=== PATIENT | male | born 1955 | race Caucasian/White ===

== ENCOUNTER 2025-01-15 09:58 | Outpatient (CLI) | payer MEDICARE, OTHER, SELFPAY ==
--- NOTE | 2025-01-15 11:02 | ECG_ITS ---
Test Date: 2025-01-15 11:16:01 Measurements Intervals [place] Rate: 56 P: 53 AK: 172 QRS: -5 QRSD: 107 T: 26 QT: 398 QTc: 387 Interpretive Statements SINUS BRADYCARDIA NONSPECIFIC T-WAVE ABNORMALITIES WARNING: DATA QUALITY MAY AFFECT INTERPRETATION No previous ECG available for comparison Electronically Signed On 01-15-2025 11:32:51 [facility] [employer] by Micha Sunshine M.D.
[2025-01-15 12:16] LABS: Hematocrit 45.6 % (42.0-52.0); Hemoglobin 14.8 g/dL (14.0-18.0); Mean Corpuscular HGB Conc 32.5 g/dl (32-36); Mean Corpuscular Hemoglobin 29.8 pg (26-34); Mean Corpuscular Volume 91.8 fl (80-100); Platelet Count Result 230 k/mm3 (150-375); Red Blood Count 4.97 M/mm3 (4.6-6.20); White Blood Count 9.4 K/mm3 (4.5-10.0)
[2025-01-15 12:29] LABS: Anion Gap 8 mmol/L (4-12); Blood Urea Nitrogen 26 mg/dL (9-20); Calcium 10.3 mg/dL (8.4-10.2); Carbon Dioxide 26 mmol/L (22-30); Chloride 106 mmol/L (98-107); Estimated Glomerular Filt Rate 56; Glucose 86 mg/dL (65-110); Potassium 4.5 mmol/L (3.4-5.0); Sodium 140 mmol/L (137-145)
[2025-01-15 12:30] LABS: Add Urine Microscopic? YES; Appearance Urine Clear (Clear); Glucose Urine UA Negative (Negative); INR 1.0; Leukocyte Esterase Ur Trace LEU/UL (Negative); Nitrate Urine Negative (Negative); Non Pathogenic Casts 0-2; Partial Thromboplastin Time 29.4 Seconds (22.3-36.8); Prothrombin Time 13.8 Seconds (11.1-14.7); Specific Grav Ur 1.018 (1.001-1.035)
--- OUTSIDE RECORDS SUMMARY | 2025-01-15 18:23 | XMS_ITS | Encounter Summary ---
Author Organization [facility] Address [address] [place] [address] Care Team Providers Care Certified Pharmacy Technician Name Role Phone Neftaly Jamison MD Primary Care Provider [phone] Encounter Details Date Type Department Care Team (Late st Contact Info) Description 09/23/2021 Lab Requisition [facility] DermPath Lab [address] [facility] [place] [phone] Sadi Irizarry MD [address] [facility] [facility] [place] [address] Social History Tobacco Use Types Packs/Day Years Used Date Smoking Tobacco: Former Alcohol Use Standard Drinks/Week Comments No 0 (1 standard drink = 0.6 oz pur e alcohol) Sex and Gender Information Value Date Recorded Sex Assigned at Not on file 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 Gender Identity Not on file Sexual Orientation Not on file documented as of this encounter Plan of Treatment Not on file documented as of this encounter Procedures Procedure Name Priority Date/Time Associated Diagnosis Comments DERMATOPATHOLOGY Routine 09/21/2021 12:0 0 AM CDT documented in this encounter Results * DERMATOPATHOLOGY (09/21/2021 12:00 AM CDT) Case Report Dermatopathology Report Case: [id number] Authorizing Provider: Sadi Irizarry MD Collected: 09/21/2021 12:00 AM Ordering Location: [facility] DermPath Lab Received: 09/23/2021 07:05 AM Pathologist: Perla Vargas MD Specimen: Skin, left upper FA 12:51 PM CDT DERMATOPATHOLOGY LABORATORY Final Diagnosis Specimen A. SKIN, left upper FA: DERMAL SCAR RESIDUAL SQUAMOUS CELL CARCINOMA NOT IDENTIFIED (L90.5) TATTOO (L81.8) 2 12:51 PM CDT DERMATOPATHOLOGY LABORATORY at 1251 CDT Clinical History SCCA in situ. 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 Check margins. 12:51 PM CDT DERMATOPATHOLOGY LABORATORY Gross Description Specimen A: Received is one formalin filled container labeled with the patient's name and designated left upper FA. The specimen consists of a non-oriented ellipse of skin measuring 84l10a7th. The epidermal surface is unremarkable. The margin is inked green. The 12 o'clock and 6 o'clock tips are submitted in cassette 1. The remainder of the ellipse is serially sectioned and submitted in cassette 2-3. Jar 0. 12:51 PM CDT DERMATOPATHOLOGY LABORATORY Microscopic Description Specimen A. SKIN, left upper FA: There are fibroblasts and collagen bundles oriented parallel to the skin surface. There are elongated blood vessels, some of which are oriented perpendicular to the skin surface. No residual squamous cell carcinoma is identified. There is granular pigment in macrophages and free within the dermis. 12:51 PM CDT DERMATOPATHOLOGY LABORATORY Disclaimer An external and internal positive and negative controls are appropriate for the histochemical, immunohistochemical and immunofluorescence stain(s) in this case (if any), except where stated explicitly. The performance characteristics of the stain(s) cited in this report were developed and its performance characteristic determined by the Dermatopathology Laboratory at [facility], directed by Dr. Briana Luis. These tests need not be, and therefore are not, approved by the [place] Food and Drug Administration. The tests are used for clinical purposes. Billing Codes Specimen Charges Stain Charges 22705 1 2 12:51 PM CDT DERMATOPATHOLOGY LABORATORY Embedded Images 12:51 PM CDT DERMATOPATHOLOGY LABORATORY Pathology/Cytolog y TISSUE SPECIMEN FROM SKIN / Unknown 09/21/2021 09/23/2021 7:05 AM CDT us Sadi Irizarry MD LAB - PATHOLOGY/CYTOLOGY ORDER JOSSUE Final Result DERMATOPATHOLOGY LABORATORY [facility] - Department of Dermatology [address], [address] [phone] documented in this encounter Visit Diagnoses Not on filedocumented in this encounter Care Teams Certified Pharmacy Technician Relationship Specialty Start Date End Date Neftaly Jamison MD [address] [place] [address] PCP - General 07/20/14 documented as of this encounter
--- OUTSIDE RECORDS SUMMARY | 2025-01-15 18:23 | XMS_ITS | Encounter Summary ---
Author Organization [facility] Address [address] [place] [address] Care Team Providers Care Cattle Producers Name Role Phone Neftaly Jamison MD Primary Care Provider [phone] Encounter Details Date Type Department Care Team (Late st Contact Info) Description 01/22/2023 Lab Requisition [facility] - DermPath Lab [address] [facility] [place] [phone] Sadi Irizarry MD [address] [facility] [place] [address] Social History Tobacco Use Types Packs/Day Years Used Date Smoking Tobacco: Former Alcohol Use Standard Drinks/Week Comments No 0 (1 standard drink = 0.6 oz pur e alcohol) Sex and Gender Information Value Date Recorded Sex Assigned at Not on file Legal Sex Male 6:12 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 Gender Identity Not on file Sexual Orientation Not on file documented as of this encounter Plan of Treatment Not on file documented as of this encounter Procedures Procedure Name Priority Date/Time Associated Diagnosis Comments DERMATOPATHOLOGY Routine 01/22/2023 12:0 0 AM COMMERCIAL CARPET INSTALLER documented in this encounter Results * DERMATOPATHOLOGY (01/22/2023 12:00 AM COMMERCIAL CARPET INSTALLER) Case Report Dermatopathology Report Case: [id number] Authorizing Provider: Sadi Irizarry MD Collected: 01/22/2023 12:00 AM Ordering Location: [facility] DermPath Lab Received: 01/22/2023 02:41 PM Pathologist: Marisela Cardona MD Specimen: Skin, right forearm 1:45 PM [facility] DERMATOPATHOLOGY LABORATORY Final Diagnosis Specimen A. SKIN, right forearm: BENIGN VERRUCOUS KERATOSIS (L82.1) (see microscopic description) 1:45 PM [facility] DERMATOPATHOLOGY LABORATORY at 1345 COMMERCIAL CARPET INSTALLER Clinical History SCCA vs Prurigo Path# [id number] 1:45 PM [facility] DERMATOPATHOLOGY LABORATORY Gross Description Specimen A: Received is one formalin filled container labeled with the patient's name and designated right forearm. The specimen consists of a shave biopsy measuring 10x9x2 mm. Jar 0. 1:45 PM [facility] DERMATOPATHOLOGY LABORATORY Microscopic Description Specimen A. SKIN, right forearm: Sections show hyperkeratosis, papillomatosis, hypergranulosis, and acanthosis. These histological findings can be seen in a verruca vulgaris or a seborrheic keratosis. Prurigo nodularis was also considered. 1:45 PM [facility] DERMATOPATHOLOGY LABORATORY Disclaimer An external and internal positive and negative controls are appropriate for the histochemical, immunohistochemical and immunofluorescence stain(s) in this case (if any), except where stated explicitly. The performance characteristics of the stain(s) cited in this report were developed and its performance characteristic determined by the Dermatopathology Laboratory at [facility], directed by Dr. Briana Luis. These tests need not be, and therefore are not, approved by the [place] Food and Drug Administration. The tests are used for clinical purposes. Billing Codes Specimen Charges Stain Charges 92056 1 1:45 PM [facility] DERMATOPATHOLOGY LABORATORY Embedded Images 1:45 PM [facility] DERMATOPATHOLOGY LABORATORY Pathology/Cytolog y TISSUE SPECIMEN FROM SKIN / Unknown 01/22/2023 01/22/2023 2:41 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 us Sadi Irizarry MD LAB - PATHOLOGY/CYTOLOGY ORDER JOSSUE Final Result DERMATOPATHOLOGY LABORATORY [facility] - Department of Dermatology [address], [address] [phone] documented in this encounter Visit Diagnoses Not on filedocumented in this encounter Care Teams Cattle Producers Relationship Specialty Start Date End Date Neft[place] [address] PCP - General 07/20/14 documented as of this encounter
--- OUTSIDE RECORDS SUMMARY | 2025-01-15 18:23 | XMS_ITS | Encounter Summary ---
Author Organization [facility] Address [address] [place] [address] Care Team Providers Care Circulation Worker Name Role Phone Doron Gonzalez DO Primary Care Provider [phone] Neftaly Hawthorne MD Primary Care Provider [phone] Encounter Details Date Type Department Care Team (Late st Contact Info) Description 07/24/2017 Community Orders [facility] EPICCARE LINK Bashir Jaramillo MD [facility] [address] [address] Social History Tobacco Use Types Packs/Day Years Used Date Smoking Tobacco: Never Assessed Sex and Gender Information Value Date Recorded Sex Assigned at Not on file Legal Sex Male 6:07 PM CDT Gender Identity Not on file Sexual Orientation Not on file documented as of this encounter Plan of Treatment Not on file documented as of this encounter Visit Diagnoses Not on filedocumented in this encounter Care Teams Circulation Worker Relationship Specialty Start Date End Date Doron Gonzalez DO PCP - General 08/02/16 06/05/19 Neftaly Hawthorne MD [address] [place] [address] PCP - General INTERNAL MEDICINE 06/06/19 documented as of this encounter
--- OUTSIDE RECORDS SUMMARY | 2025-01-15 18:23 | XMS_ITS | Encounter Summary ---
Author Organization [facility] Address [address] [place] [address] Care Team Providers Care Base Wad Operator Adjuster Name Role Phone Neftaly Jamison MD Primary Care Provider [phone] Encounter Details Date Type Department Care Team (Late st Contact Info) Description 07/05/2020 Lab Requisition [facility] DermPath Lab [address] [facility] 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 Gender Identity Not on file Sexual Orientation Not on file documented as of this encounter Plan of Treatment Not on file documented as of this encounter Procedures Procedure Name Priority Date/Time Associated Diagnosis Comments DERMATOPATHOLOGY Routine 07/01/2020 3:33 AM CDT documented in this encounter Results * DERMATOPATHOLOGY (07/01/2020 3:33 AM CDT) Case Report Dermatopathology Report Case: [id number] Authorizing Provider: Sadi Irizarry MD Collected: 07/01/2020 03:33 AM Ordering Location: [facility] DermPath Lab Received: 07/05/2020 05:53 AM Pathologist: Jacinta Luis MD Specimens: A) - Skin, right lateral neck B) - Skin, left clavicle 4:07 PM T DERMATOPATHOLOGY LABORATORY Final Diagnosis Specimen A. SKIN, right lateral neck: HYPERPLASTIC (HYPERTROPHIC) ACTINIC KERATOSIS, ACANTHOLYTIC WITH FOLLICULAR EXTENSION (L57.0) Specimen B. SKIN, left clavicle: BASAL CELL CARCINOMA, NODULAR TYPE (C44.519) 4:07 PM CDT DERMATOPATHOLOGY LABORATORY at 1607 CDT Clinical History A: AK vs BCCA vs SCC. Path#[id number] B: AK vs BCCA vs SCCA. Path#[id number] 4:07 PM CDT DERMATOPATHOLOGY LABORATORY Gross Description Specimen A: Received is one formalin filled container labeled with the patient's name and designated right lateral neck. The specimen consists of a shave biopsy measuring 8x6x1 mm. Jar 0. Specimen B: Received is one formalin filled container labeled with the patient's name and designated left clavicle. The specimen consists of a shave biopsy measuring 7x6x1 mm. Jar 0. 4:07 PM CDT DERMATOPATHOLOGY LABORATORY Microscopic Description Specimen A. SKIN, right lateral neck: There is hyperkeratosis alternating with parakeratosis. There is epidermal hyperplasia with disorderly maturation of keratinocytes with nuclear pleomorphism confined to the lower half of the epidermis. Specimen B. SKIN, left clavicle: Within the dermis there are aggregates of basaloid cells with a high nuclear to cytoplasmic ratio and peripheral palisading. 4:07 PM CDT DERMATOPATHOLOGY LABORATORY Disclaimer An external and internal positive and negative controls are appropriate for the histochemical, immunohistochemical and immunofluorescence stain(s) in this case (if any), except where stated explicitly. The performance characteristics of the stain(s) cited in this report were developed and its performance characteristic determined by the Dermatopathology Laboratory at [facility], directed by Dr. Briana Luis. These tests need not be, and therefore are not, approved by the [place] Food and Drug Administration. The tests are used for clinical purposes. Billing Codes Specimen Charges Stain Charges 02860 37162 1 1 04/27/202 1 4:07 PM CDT DERMATOPATHOLOGY LABORATORY Embedded Images 1 4:07 PM CDT DERMATOPATHOLOGY LABORATORY Pathology/Cytology TISSUE SPECIMEN FROM SKIN / Unknown 07/01/2020 3:33 AM CDT 07/05/2020 5:53 AM CDT Miscellaneous samples (specimen) TISSUE SPECIMEN FROM SKIN / Unknown 07/01/2020 3:33 AM CDT 07/05/2020 5:53 AM CDT us Sadi Irizarry MD LAB - PATHOLOGY/CYTOLOGY ORDER JOSSUE Final Result DERMATOPATHOLOGY LABORATORY [facility] - Department of Dermatology [facility] Medicine [address] [place] [address], [address] [phone] documented in this encounter Visit Diagnoses Not on filedocumented in this encounter Care Teams Base Wad Operator Adjuster Relationship Specialty Start Date End Date Neftaly Jam[place] [address] PCP - General 07/20/14 documented as of this encounter
--- OUTSIDE RECORDS SUMMARY | 2025-01-15 18:23 | XMS_ITS | Encounter Summary ---
Author Organization [facility] Address [address] [place] [address] Care Team Providers Care Process Controls Technician Name Role Phone Neftaly Jamison MD Primary Care Provider [phone] Encounter Details Date Type Department Care Team (Late st Contact Info) Description 09/29/2022 Lab Requisition [facility] - DermPath Lab [address] [facility] [place] [phone] Sadi Irizarry MD [address] [facility] [place] [address] Social History Tobacco Use Types Packs/Day Years Used Date Smoking Tobacco: Former Alcohol Use Standard Drinks/Week Comments No 0 (1 standard drink = 0.6 oz pur e alcohol) Sex and Gender Information Value Date Recorded Sex Assigned at Not on file 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 Gender Identity Not on file Sexual Orientation Not on file documented as of this encounter Plan of Treatment Not on file documented as of this encounter Procedures Procedure Name Priority Date/Time Associated Diagnosis Comments DERMATOPATHOLOGY Routine 09/28/2022 12:0 0 AM CDT documented in this encounter Results * DERMATOPATHOLOGY (09/28/2022 12:00 AM CDT) Case Report Dermatopathology Report Case: [id number] Authorizing Provider: Sadi Irizarry MD Collected: 09/28/2022 12:00 AM Ordering Location: [facility] DermPath Lab Received: 09/29/2022 11:54 AM Pathologist: Azul Mata MD Specimen: Skin, right lat. neck 1:42 PM T DERMATOPATHOLOGY LABORATORY Final Diagnosis Specimen A. SKIN, right lat. 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 Path# [id number]. Check Margins. 1:42 PM CDT DERMATOPATHOLOGY LABORATORY Gross Description Specimen A: Received is one formalin filled container labeled with the patient's name and designated right lat. neck.The specimen consists of an ellipse measuring 63z46v4 mm and is oriented with the suture/notch at the 12 o'clock position labeled on the requisition. The 12 to 6 o'clock margin is inked green. The 6 o'clock to 12 o'clock margin is inked black. The 12 o'clock tip is submitted in cassette 1. The 6 o'clock tip is submitted in cassette 2. The remainder of the ellipse is serially sectioned and submitted in cassettes 3-4. Jar 0. 1:42 PM CDT DERMATOPATHOLOGY LABORATORY Microscopic Description Specimen A. SKIN, right lat. neck: The epidermis shows parakeratosis, full thickness disorderly maturation of keratinocytes, mitoses at different levels, and dyskeratotic cells. This lesion is not present at the margin of the specimen. There are fibroblasts and collagen bundles oriented parallel to the skin surface with elongated blood vessels, some of which are oriented perpendicular to the skin surface. There is incidental adjacent focal parakeratosis. The lower half of the epidermis shows disorderly maturation of keratinocytes with nuclear pleomorphism. This lesion is present at the green, 12 to 6 o'clock, margin of the specimen. 1:42 PM CDT DERMATOPATHOLOGY LABORATORY Disclaimer An external and internal positive and negative controls are appropriate for the histochemical, immunohistochemical and immunofluorescence stain(s) in this case (if any), except where stated explicitly. The performance characteristics of the stain(s) cited in this report were developed and its performance characteristic determined by the Dermatopathology Laboratory at [facility], directed by Dr. Briana Luis. These tests need not be, and therefore are not, approved by the [place] Food and Drug Administration. The tests are used for clinical purposes. Billing Codes Specimen Charges Stain Charges 38925 1 3 1:42 PM CDT DERMATOPATHOLOGY LABORATORY Embedded Images 3 1:42 PM CDT DERMATOPATHOLOGY LABORATORY Pathology/Cytolog y TISSUE SPECIMEN FROM SKIN / Unknown 09/28/2022 09/29/2022 11:54 AM CDT Sadi Irizarry MD LAB - PATHOLOGY/CYTOLOGY ORDER JOSSUE Final Result DERMATOPATHOLOGY LABORATORY [facility] - Department of Dermatology [facility] Medicine [address] [place] [address], [address] [phone] documented in this encounter Visit Diagnoses Not on filedocumented in this encounter Care Teams Process Controls Technician Relationship Specialty Start Date End [place] [address] PCP - General 07/20/14 documented as of this encounter
--- OUTSIDE RECORDS SUMMARY | 2025-01-15 18:23 | XMS_ITS | Encounter Summary ---
Author Organization [facility] Address [address] [facility] [place] [address] Care Team Providers Care Mica Spreader Name Role Phone Neftaly Jamison MD Primary Care Provider [phone] Encounter Details Date Type Department Care Team (Late st Contact Info) Description 08/08/2019 Lab Requisition [facility] DermPath Lab [address] [facility] [place] [phone] Sadi Irizarry MD [address] [facility] [place] [address] Social History Tobacco Use Types Packs/Day Years Used Date Smoking Tobacco: Former Alcohol Use Standard Drinks/Week Comments No 0 (1 standard drink = 0.6 oz pur e alcohol) Sex and Gender Information Value Date Recorded Sex Assigned at Not on file 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 Gender Identity Not on file Sexual Orientation Not on file documented as of this encounter Plan of Treatment Not on file documented as of this encounter Procedures Procedure Name Priority Date/Time Associated Diagnosis Comments DERMATOPATHOLOGY Routine 08/07/2019 12:0 0 AM CDT documented in this encounter Results * DERMATOPATHOLOGY (08/07/2019 12:00 AM CDT) Case Report Dermatopathology Report Case: [id number] Authorizing Provider: Sadi Irizarry MD Collected: 08/07/2019 12:00 AM Ordering Location: [facility] DermPath Lab Received: 08/08/2019 02:34 PM Pathologist: Perla Vargas MD Specimen: Skin, right upper FH 0 3:00 PM CDT DERMATOPATHOLOGY LABORATORY Final Diagnosis Specimen A. SKIN, right upper FH: ACTINIC KERATOSIS (L57.0) 0 3:00 PM CDT DERMATOPATHOLOGY LABORATORY at 1500 CDT Clinical History SCCA vs AK. Path # [id number]. 0 3:00 PM CDT DERMATOPATHOLOGY LABORATORY Gross Description Specimen A: Received is one formalin filled container labeled with the patient's name and designated right upper FH. The specimen consists of a shave biopsy measuring 3p4b7bi. Jar 0. 0 3:00 PM CDT DERMATOPATHOLOGY LABORATORY Microscopic Description Specimen A. SKIN, right upper FH: There is focal parakeratosis. The lower half of the epidermis shows disorderly maturation of keratinocytes with nuclear pleomorphism. 0 3:00 PM CDT DERMATOPATHOLOGY LABORATORY Disclaimer An external and internal positive and negative controls are appropriate for the histochemical, immunohistochemical and immunofluorescence stain(s) in this case (if any), except where stated explicitly. The performance characteristics of the stain(s) cited in this report were developed and its performance characteristic determined by the Dermatopathology Laboratory at [facility], directed by Dr. Briana Luis. These tests need not be, and therefore are not, approved by the [place] Food and Drug Administration. The tests are used for clinical purposes. Billing Codes Specimen Charges Stain Charges 92965 1 0 3:00 PM CDT DERMATOPATHOLOGY LABORATORY Embedded Images 0 3:00 PM CDT DERMATOPATHOLOGY LABORATORY Pathology/Cytolog y TISSUE SPECIMEN FROM SKIN / Unknown 08/07/2019 08/08/2019 2:34 PM CDT us Sadi Irizarry MD LAB - PATHOLOGY/CYTOLOGY ORDER JOSSUE Final Result DERMATOPATHOLOGY LABORATORY [facility] - Department of Dermatology Asphalt Mixing Machine Operator [place]/[address] [phone] documented in this encounter Visit Diagnoses Not on filedocumented in this encounter Care Teams Mica Spreader Relationship Specialty Start Date End Date Neftaly Jamison MD [address] [place] [address] PCP - General 07/20/14 documented as of this encounter
--- OUTSIDE RECORDS SUMMARY | 2025-01-15 18:23 | XMS_ITS | Clinical Summary ---
Author Organization [facility] [employer] Address [address] [place] [address] Care Team Providers Care Patient Case Manager Name Role Phone Neftaly Jamison MD Primary Care Provider [phone] Source Comments [facility] Affiliates and Associated Physician Practices is amultiple site organization consisting of ambulatory clinics and hospital sitesin [place], [place], [place] and [place]. This disclosure is being madepursuant to the Care Everywhere program and may not contain all information available regarding this patient. Last updated 17.[facility] [employer] Allergies Active Allergy Reactions Criticality Noted Date Comments Codeine Other Low 08/10/2014 AGUILERA Family History Medical History Relation Name Comments Allergy (Severe) Neg Hx CVA Neg Hx Cancer Neg Hx Cancer - Breast Neg Hx Cancer - Skin, Melanoma Neg Hx Cancer - Skin, Non Melanoma Neg Hx Eczema Neg Hx Hemophilia Neg Hx Psoriasis Neg Hx Rashes/Skin Problems Neg Hx Social History Tobacco Use Types Packs/Day Years Used Date Smoking Tobacco: Former Alcohol Use Standard Drinks/Week Comments No 0 (1 standard drink = 0.6 oz pur e alcohol) Sex and Gender Information Value Date Recorded Sex Assigned at Not on file Legal Sex Male 6:12 PM [employer] Gender Identity Not on file Sexual Orientation Not on file Last Filed Vital Signs Vital Sign Reading Time Taken Comments Blood Pressure 118/80 09/08/2014 9:51 AM CDT Pulse 57 09/08/2014 9:51 AM CDT Temperature - - Respiratory Rate - - Oxygen Saturation 97% 09/08/2014 9:51 AM CDT Inhaled Oxygen Concentration - - Weight 106.6 kg (235 lb) 09/08/2014 7:38 AM CDT Height 175.3 cm (5' 9) 09/08/2014 7:38 AM CDT Body Mass Index 34.7 09/08/2014 7:38 AM CDT Plan of Treatment Health Maintenance Due Date Last Done Comments COLOGUARD (AGES 45-75) - COL ON CA SCREENING 1956 COLON MONITORING 1956 COLONOSCOPY - COLON CA SCREENING 1956 CT COLONOGRAPHY - COLON CA SCREENING 1956 Colorectal Cancer Screening 1956 FIT - COLON CA SCREENING 1956 FLEX SIG - COLON CA SCREENING 1956 LIPID TESTING 1956 MEDICARE AWV 12 MONTHS 1956 HEPATITIS C SCREENING 04/02/1974 DTAP/TDAP/TD VACCINES (1 - Tdap) 1975 PNEUMOCOCCAL VACCINE 50+ (1 of 1 - PCV) 2006 ZOSTER VACCINE (1 of 2) 2006 AAA SCREENING 2021 DEPRESSION SCREENING 03/12/2024 COVID-19 VACCINE (1 - 2023-2 5 season) 2024 INFLUENZA VACCINE (#1) 2024 Respiratory Syncytial Virus (RSV) Vaccine Pt: or over 60 yrs (1 - 1-dose 75+ series) 2031 HEPATITIS B VACCINE Aged Out No longe r eligible based on patient's age to complete this topic HIB VACCINE Aged Out No longer eligi ble based on patient's age to complete this topic HPV VACCINE Aged Out No longer eligi ble based on patient's age to complete this topic MENINGOCOCCAL (Group B) VACC INE SHARED DECISION-MAKING Aged Out No longer eligibl e based on patient's age to complete this topic MENINGOCOCCAL GROUPS A/C/Y/W VACCINE Aged Out No longer eligible b ased on patient's age to complete this topic Insurance [facility] MEDICARE Care Teams Patient Case Manager Relationship Specialty Start Date End Date Neftaly Jamison MD [address] [place] [place] [address] PCP - General 07/20/14
--- OUTSIDE RECORDS SUMMARY | 2025-01-15 18:23 | XMS_ITS | Clinical Summary ---
Author Organization [facility] Address [address] [place] [address] Care Team Providers Care Loan Documentation Specialist Name Role Phone Neftaly Hawthorne MD Primary Care Provider [phone] Logan Contreras MD, Ariel Unavailable [phone]- [phone] Antonino FUENTES MD, Sebastián Grant Unavailable [phone] Narciso Hauser MD Unavailable [phone] Allergies Active Allergy Reactions Criticality Noted Date Comments Codeine Headache Low 08/10/2014 Medications FLUoxetine (PROzac) 40 mg capsule 1 Active tamsulosin (FLOMAX) 0.4 mg extended release capsule 1 Active olmesartan (BENICAR) 40 mg tablet Take 1 tablet (40 mg total) by mouth daily Active busPIRone (BUSPAR) 15 mg tablet 2 Active mesalamine (LIALDA) 1.2 gram EC tabletIndications :Ulcerative pancolitis without complication (HCC) TAKE 1 TABLET 4 TIMES DAILY 360 tablet 3 4 Active finasteride (PROSCAR) 5 mg tablet TAKE 1 TABLET DAILY 90 tablet 3 5 Active potassium citrate ER (UROCIT-K) 10 mEq (1,080 mg) CR tablet Take 1 tablet (10 mEq total) by mouth 2 (two) times a day Active omeprazole (PriLOSEC) 20 mg capsuleIndication s:Gastroesophagea l reflux disease without esophagitis TAKE 1 CAPSULE DAILY 90 capsule 3 5 Active rOPINIRole (REQUIP) 3 mg tabletIndications :PLMD (periodic limb movement disorder) TAKE 1 TABLET NIGHTLY 90 tablet 2 5 Active Active Problems Problem Noted Date Diagnosed Date Arthropathy of lumbar facet joint 06/09/2024 Sensorineural hearing loss (SNHL) of both ears 0 03/22/2023 Dysfunction of both eustachian tubes 03/22/2023 Morbid (severe) obesity due to excess calories 1 Left flank pain 07/11/2021 Overview (07/15/2022): Has been ongoing for many years, not related to UC, food intake, BMs or movements. Was having episodic N/V that is like Cyclic Vomitting Syndrome. Improved with Nortriptyline 50mg Assessment & Plan (07/15/2022 6:53 AM CDT): The patient has chronic left flank pain has improved with the use of nortriptyline. He believes that the 50 mg dose is superior to the lower 1. He is not having any undue side effects. He will continue to follow with Urology given his history chronic kidney stones. He is advised to continue to drink plenty of water Assessment & Plan (07/11/2021 1:12 PM CDT): His left flank pain has been going on for many years and is possibly neuropathic. Increasing nortriptyline may help. This should also help with CVS. Some improvement already. - increase nortriptyline to 50mg daily. 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 The patient was informed that he may stop the Eliquis the beginning of August. If he experiences any shortness of breath or tightness in his calf see was informed to call back in to the office or proceed to the emergency room. The patient was informed that if he develops another blood clot that he would be on anticoagulation for the rest of his life. Renal cyst 04/05/2021 PLMD (periodic limb movement disorder) Assessment & Plan (05/13/2024 2:39 PM DENTAL SURGERY DOCTOR): Under control with Requip 3 mg night Assessment & Plan (01/01/2024 11:07 AM CDT): Patient continue with Requip 3 mg p.o. Q bedtime. The patient will call back in if he would like gabapentin ordered after he has his back pain evaluated. Assessment & Plan (12/28/2022 10:17 AM CDT): The PLMS are under control with Requip 3 mg at bedtime. I have sent a refill to his pharmacy and he will follow-up with me in 1 year. Assessment & Plan (12/29/2021 10:35 AM CDT): Due to the increased leg movements throughout the night, I have increased the Requip to 1.5 mg nightly. I have reordered the medication. Assessment & Plan (06/23/2021 11:45 AM CDT): Patient will continue with Requip 1 mg p.o. at bedtime to treat periodic limb movement disorder. Assessment & Plan (05/26/2021 12:49 PM CDT): Patient will continue with Requip 1 mg p.o. at bedtime to treat periodic limb movement disorder. Assessment & Plan (02/22/2021 12:09 PM DENTAL SURGERY DOCTOR): Patient continue to use Requip 1 mg p.o. Q bedtime. Pulmonary embolus 02/18/2021 Assessment & Plan (12/29/2021 10:35 AM CDT): Patient was instructed that if he should start showing signs or symptoms of a PE or sudden shortness of breath, to go to the ED. Assessment & Plan (05/26/2021 12:54 PM CDT): The patient will continue with Eliquis 5 mg b.i.d.. The patient has a venous Doppler bilaterally, CTA and a factor 5 ordered. Patient will obtain before next appointment. Assessment & Plan (02/22/2021 12:09 PM DENTAL SURGERY DOCTOR): Patient continue with his Eliquis prescribed by the primary care physician. I did order a factor 5, protein S and an anti thrombin. High risk medications (not anticoagulants) long- term use 10/06/2019 Assessment & Plan (10/06/2019 3:31 PM CDT): High risk medications: As with all patients taking immunosuppressive biologic therapies or immunomodulators, we provide a balanced discussion on benefits and risks associated with these medications. Regarding potential risks, we employ a strategy of active monitoring for medication related toxicities. Toxicities and risks discussed in monitoring include, but are not limited to the following: infusion reactions including anaphylaxis; bacterial, viral and fungal infections; pancreatitis; heart failure; neurologic reactions; hematologic and solid tumors malignancy including an increased risk of lymphoma and skin cancers; bone marrow toxicity including anemia, lymphopenia and immune suppression; hepatotoxicity and potential renal toxicity. Patients are actively assessed through routine laboratories (Q4 month or more frequently) which I personally review and are encouraged to contact us with any questions regarding new symptom development. In the setting of the COVID-19 pandemic, we are proactively addressing patient concerns through providing clear communication on current expert opinion (and data as becomes available) with regard to SARS-Co-V-2/COVID-19 and IBD as well as IBD Therapy. We regularly update our [email or web address] website and social media feeds to further communicate this information. All of our recommendations are also in line with the CDC as well as professional societies including the international organization for the study of inflammatory bowel disease as well as the Crohn's and Colitis Foundation patient education recommendations. General Recommendations include: 1. COVID-19 is the disease caused by the SARS-CoV-2 virus, but patients with IBD do not appear to be at a higher risk for infection with SARS-CoV-2 or development of COVID-19. 2. Patients with IBD who do not have infection with SARS-CoV-2 should NOT discontinue their IBD therapies and should continue infusion schedules at appropriate infusion centers. 3. Patients with IBD who have known SARS-CoV-2 but have not developed COVID-19 should hold thiopurines, methotrexate, and tofacitinib. Dosing of biological therapies should be delayed for 2 weeks monitoring for symptoms of COVID-19. 4. Patients with IBD who develop COVID-19 should hold thiopurines, methotrexate, tofacitinib, and biological therapies during the viral illness. These may be restarted after complete symptom resolution or, if available, when follow-up viral testing is negative or serologic tests demonstrate the convalescent stage of illness. 5. The severity of the COVID-19 and the severity of the IBD should result in careful risk/benefit assessments regarding treatments for COVID-19 and escalating treatments for IBD. 6. Please submit cases of IBD and confirmed COVID-19 to the SECURE-IBD registry at COVIDIBD.org. https://www.crohnscolitisfoundation.org/coronavirus/admt-abh-hhcihibq-should-kno w https://www.cdc.gov/coronavirus/2019-nCoV/index.html https://www.ioibd.org/nvxdu-hkftzt-au--nre-enhablqk-uycy-bqizpr-ppuqlch-d nd-ul cerative-colitis/ Nausea 10/06/2019 Obstructive sleep apnea 04/02/2019 Assessment & Plan (05/13/2024 2:39 PM DENTAL SURGERY DOCTOR): Due to ongoing symptoms, the patient will continue CPAP at 8 cm water pressure. Denied need for supplies. ALEXUS Krishnamurthy Assessment & Plan (01/01/2024 11:10 AM CDT): Patient continue to wear CPAP at 8 cm water pressure while sleeping. I have sent her over for the patient receiving new CPAP set at 8 cm water pressure. His DME is [employer]. Assessment & Plan (12/28/2022 10:17 AM CDT): The patient continues to benefit from CPAP at 8 cm water pressure due to ongoing symptoms of DIANNA. His DME supplier is [employer]. He will follow-up with me in 1 year. Assessment & Plan (12/29/2021 10:35 AM CDT): Continues CPAP therapy at 8 cm water pressure. Denied need for supplies. DME [employer] Assessment & Plan (06/23/2021 11:44 AM CDT): The patient will continue with CPAP therapy at 8 cm water pressure. Patient denied need for supplies. DME Progression Assessment & Plan (05/26/2021 12:50 PM CDT): The patient will continue with CPAP therapy at 8 cm water pressure. Patient denied need for supplies. DME Progression Assessment & Plan (02/22/2021 12:09 PM DENTAL SURGERY DOCTOR): Patient continues to wear his CPAP at 8 cm water pressure while sleeping. His DME is [employer]. Iron deficiency anemia 01/22/2019 Assessment & Plan (01/31/2019 5:34 PM DENTAL SURGERY DOCTOR): FOB x 3 - to rule out GI source of loss If positive and colonoscopy negative, consider capsule endoscopy UA x 3 - to rule out urinary source of loss If positive, return to urology. DDX concern for renal nutcracker syndrome Low ferritin level 01/17/2019 Left lower quadrant pain 08/22/2018 Assessment & Plan (07/15/2022 6:55 AM CDT): Patient had some mild streaking in his sigmoid on his CT scan from March. There was concern that this could be diverticulitis. Unfortunately he has a history of chronic pain in this region that has not yielded any appreciable findings on previous workups. He is asked to contact us if he experiences a fairly persistent pain and tenderness in this area that lasts a couple days and does not seem similar to his chronic pain or his kidney pain as we can repeat imaging and offer antibiotics. Assessment & Plan (01/31/2019 5:37 PM DENTAL SURGERY DOCTOR): Unlikely to be GI related as he was in remission, bowel habits have not changed, and passage of stool doesn't impact symptoms Consider referral to pain management if workup negative as could be muscular skeletal trigger point as fairly focally tender Assessment & Plan (08/22/2018 8:54 AM CDT): As the patient was noted to have significant diverticulosis he is at risk for diverticulitis. We would like to repeat blood work and get a CT scan today. This should allow was to determine whether the pain is related to a kidney stone, disease activity, or diverticulitis. 1. Blood work today 2. CT scan of abdomen 3. If CT scan is negative, apply heating pad and Levsin. Continue regular hydration Iron deficiency anemia due to chronic blood loss 08/22/2018 Assessment & Plan (08/22/2018 8:54 AM CDT): Patient typically has polycythemia and has typically required phlebotomy monthly for the last 2 years. Recently he has not required phlebotomy for to out of the last 3 months. This is slightly concerning for mild chronic blood loss. 1. Check CBC and fecal occult cards x3 2. Continue follow-up with hematology. 3. If fecal occult cards positive, plan for EGD and colonoscopy Essential hypertension 03/20/2018 Gastroesophageal reflux disease without esophagi tis 01/28/2018 Overview (01/28/2018): Has had recurrent over years. Came back again in fall 2017. Assessment & Plan (06/08/2023 8:15 AM CDT): Chronic GERD, well-controlled with PPI daily. -continue PPI daily -RECOMMENDATIONS given include: anti-reflux maneuvers, Avoid acidic foods like oranges and tomatoes., avoidance of spicy foods, avoid eating 3-4 hours before bed, elevation of the head of the bed, and weight loss Assessment & Plan (07/11/2021 12:45 PM CDT): Controlled with ppi, continue. Assessment & Plan (01/28/2018 9:38 AM DENTAL SURGERY DOCTOR): Trial of PPI. Colon adenoma 01/28/2018 Overview (01/28/2018): 4 mm polyp on colonoscopy in 2018. Likely sporadic. Assessment & Plan (01/28/2018 9:40 AM DENTAL SURGERY DOCTOR): Repeat colonoscopy in 1-2 years. 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 - Inactive (Humphrey Score 0) ulcerative colitis, in remission, in remission since the last examination. - Diverticulosis in the sigmoid colon. - Background biopsies were taken from the right colon, left colon and rectosigmoid colon. Pathology: Colon, ascending, biopsy: Colonic mucosa within normal limits Colon, left, biopsy: Inactive chronic colitis Colon, rectosigmoid, biopsy: Inactive chronic proctocolitis Imaging: CT A/P 08/2018 1. Nonobstructing 2 mm right upper pole renal stone. 2. Diverticulosis without diverticulitis. Assessment & Plan (06/08/2023 8:24 AM CDT): History of ulcerative pancolitis diagnosed in 2002. Has been well maintained on Lialda 4.8 g per day. Last colonoscopy by Dr. Gillis April 2021 with inactive ulcerative pancolitis, pathology unremarkable. -continue Lialda 4.8 g per day -we will order labs - CBC, CMP, CRP, ESR, fecal calprotectin -schedule colonoscopy -The risks (risks of bleeding, infection, perforation requiring surgery, missed polyps/cancer, dental injury, aspiration pneumonia, anesthesia complications such as drug reaction and cardiopulmonary complications including rare chance of ), benefits, and alternatives of the planned procedure were explained to the patient who understands and consents to having procedure done. Assessment & Plan (07/15/2022 6:57 AM CDT): The patient continues to do well on Lialda monotherapy and it remains quite affordable. We would like to continue this for the foreseeable future. We will plan to repeat his colonoscopy in April of 2023. His labs with his primary or urologist that include a CMP are sufficient for monitoring his Lialda. Assessment & Plan (07/11/2021 12:44 PM CDT): He appears to be in clinical, endoscopic, and histologic remission based on his last colonoscopy in 04/2021 and his symptoms. His diarrheas and vomiting have resolved with nortriptyline. His left flank pain has been going on for many years and is possibly neuropathic. Increasing nortriptyline may help although the pt is not interested at this time. He is doing well on Lialda, and will continue this treatment. His next colonoscopy will be in 2024 (asuming he continues to be in remission). - continue Lialda 4.8g daily - continue nortriptyline 50 daily. - one year follow up with one of our SAFETY AND HEALTH MANAGER Assessment & Plan (10/06/2019 3:44 PM CDT): He appears to be in clinical, endoscopic, and histologic remission based on his last colonoscopy and his symptoms. His LLQ pain was possibly due to his diverticular disease, though it appears to be now completely resolved. He is doing well on Lialda, and will continue this treatment. It's unclear what is causing his short bouts of nausea, but since they are very self limited we will plan to continue to monitor his symptoms and he will let us know if they get worse He will contact us with any further symptoms. We have provided him with our direct office number. He is up to date on colonoscopy, next due in 04/2021. We will refer him to our clinical dental surgery doctor for nutritional optimization. Assessment & Plan (02/02/2019 2:26 PM DENTAL SURGERY DOCTOR): While the patient attributes this pain to his UC, he admits that the pain historically has been to be intermittent and not associated with active disease. If anything his UC may have been diagnosed as an incidental finding Plan: Repeat colonoscopy Continue Lialda until proven ineffective Assessment & Plan (08/22/2018 8:51 AM CDT): Patient was noted to be in remission on his recent colonoscopy in September of 2017 and his current symptoms are not suggestive of a flare. We would recommend that he continue his Lialda 1. Continue Lialda 2. Colonoscopy scheduling based on previous discussion with Dr. Gillis unless symptoms change Assessment & Plan (01/28/2018 9:37 AM DENTAL SURGERY DOCTOR): In clinical, endoscopy and histologic remission. conintue angelolda. Needs colonoscopy in summer 2019. Temporary cerebral vascular dysfunction 03/22/19 11 Resolved Problems Problem Noted Date Diagnosed Date Resolved Date RLS (restless legs syndrome) 05/26/2021 05/26/2021 Ulcerative colitis with complication 05/26/2021 07/11/2021 Primary insomnia 02/22/2021 05/26/2021 Ulcerative pancolitis (CMS/HCC) 03/19/2019 07/11/2021 Overview (03/19/2019): Added automatically from request for surgery [id number] Encounters Date Type Department Care Team Description 10/22/2024 10:00 AM CDT Office Visit [facility] [address] [place] [address], [address] [place] [address] Jose E Pacheco MD Acute low back pain with sciatica, sciatica laterality unspecified, unspecified back pain laterality (Primary Dx) from Last 3 Months Immunizations Immunization Administration Dates Next Due Influenza, Quadrivalent, Melissa l Culture-based MDCK, Antibiotic Free, Intramuscular 05/21/2018 Influenza, Quadrivalent, Split, Intramuscular Pneumococcal Conjugate PCV 13 01/15/2017 ZOSTER Recombinant 10/31/2018,06/12/2018 Surgical History Surgery Date Site/Laterality Comments WA LITHOTRIPSY XTRCORP SHOCK WAVE Renal Lithotripsy - (Added by TW Conv) WA APPENDECTOMY ROTATOR CUFF REPAIR KNEE SURGERY Knee Surgery - (Added by TW Conv) LASIK CHOLECYSTECTOMY BRONCHOSCOPY 04/15/2019 drug induced sleep endoscopy SINUS SURGERY CATARACT EXTRACTION SEPTOPLASTY 03/12/1997 - 03/11/1998 COLONOSCOPY Medical History Medical History Date Comments Anemia TIA (transient ischemic attack) Kidney stone Skin cancer UC (ulcerative colitis) 2007 History of colon polyps Pulmonary embolism 02/2021 Allergic rhinitis Anxiety Hypertension GERD (gastroesophageal reflux disease) Colitis HL (hearing loss) Colon polyp Family History Medical History Relation Name Comments Diabetes Brother Diabetes Father Family history of diabetes mellitus (DM) - (Added by TW Conv) Heart disease Father Hypertension Father Family history of hypertension - (Added by TW Conv) Cancer Mother Family history of malignant neoplasm - lung (Added by TW Conv) Lung cancer Mother Cancer Sister Family history of malignant neoplasm - lung (Added by TW Conv) Lung cancer Sister Relation Name Status Comments Brother Father Mother Sister Social History Tobacco Use Types Packs/Day Years Used Date Smoking Tobacco: Former Cigarettes 1991 Smokeless Tobacco: Never Tobacco Cessation:Counseling Given: Not Answered Alcohol Use Standard Drinks/Week Comments Not Currently 0 (1 standard drink = 0.6 oz pur e alcohol) AUDIT-C Answer Date Recorded Q1: How often do you have a drink containing alcohol? Never 07/09/2024 Q2: How many drinks containi ng alcohol do you have on a typical day when you are drinking? Patient does not drink Q3: How often do you have si x or more drinks on one occasion? Never 07/09/2024 Personal Safety Answer Date Recorded Have you ever been in or are you currently in a harmful physical or emotional relationship or is someone making you feel afraid or unsafe? Denies 07/11/2023 Sex and Gender Information Value Date Recorded Sex Assigned at Not on file Legal Sex Male 2:36 AM DENTAL SURGERY DOCTOR Gender Identity Male 09/16/2019 11:58 AM CDT Sexual Orientation Straight 09/16/2019 11 :58 AM CDT Last Filed Vital Signs Vital Sign Reading Time Taken Comments Blood Pressure 143/76 10/22/2024 9:52 AM CDT Pulse 66 10/22/2024 9:52 AM CDT Temperature 36.2 C (97.2 F) 05/13/2024 2:15 PM DENTAL SURGERY DOCTOR Respiratory Rate 18 07/09/2024 9:51 AM CDT Oxygen Saturation 95% 07/09/2024 9:51 AM CDT Inhaled Oxygen Concentration - - Weight 105.4 kg (232 lb 4.8 oz) 10/22/2024 9:52 AM CDT Height 175.3 cm (5' 9) 10/22/2024 9:52 AM CDT Body Mass Index 34.3 10/22/2024 9:52 AM CDT Plan of Treatment Health Maintenance Due Date Last Done Comments Depression Screening 1955 Hepatitis C Screening 1955 DTaP/Tdap/Td Vaccine (1 - Tdap) 1967 Hepatitis B Screening 1974 Abdominal Aortic Aneurysm (A AA) Screen 2021 02/17/2021, 08/16/2018, 10/16/2013, Additional history exists Well Visit 65+ 2021 Colon Cancer Screening-Colonoscopy 01/11/2024 07/11/2023, 05/09/2021, 04/21/2019, Additional history exists Fall Risk Assessment 07/10/2024 07/11/2023 Influenza Vaccine (#1) 2024 , 10/30/2018, 05/21/2018 Prostate Cancer Screening-PSA 04/11/2026, 04/10/2023, 05/11/2022, Additional history exists Zoster Vaccine Completed 10/31/2018, 06/12/2018 Colon Cancer Screening-CT Colonography Discontinued 07/11/2023, 05/09/2021, 04/21/2019, Additional history exists Colon Cancer Screening-DNA Stool Discontinued 07/11/2023, 05/09/2021, 04/21/2019, Additional history exists Colon Cancer Screening-FIT Discontinued 07/10, 05/09/2021, 04/21/2019, Additional history exists Colon Cancer Screening-Sigmoidoscopy Discontinued 07/11/2023, 05/09/2021, 04/21/2019, Additional history exists Pneumococcal vaccine 65+ Completed 04/09/2024, 08/2016 Procedures Procedure Name Priority Date/Time Associated Diagnosis Comments PSA DIAGNOSTIC Routine 04/11/2024 11:10 AM DENTAL SURGERY DOCTOR Benign localized prostatic hyperplasia with lower urinary tract symptoms (LUTS) COLONOSCOPY 07/11/2023 7:[address] ABDOMEN PELVIS W CONTRAST Schedule Routine, Read Routine (OP Routine) 02/17/2021 1:31 PM DENTAL SURGERY DOCTOR Ulcerative pancolitis (HCC) Left lower quadrant pain Diarrhea, unspecified type Diverticulosis from Last 3 Months or Most Recently Relevant to Health Maintenance Results * PSA diagnostic (04/11/2024 11:10 AM DENTAL SURGERY DOCTOR) PSA-Total 0.80 <=5.40 ng/mL Comment: Interpretive Data AGE SEX REFERENCE INTERVAL 0 minutes-150 years Female None 0 minutes-49 years Male None 50-59 years Male 0-3.90 60-69 years Male 0-5.40 70-79 years Male 0-6.20 80-150 years Male 0-6.20 The Gabriel PSA Total assay procedure was used. Results from different manufacturers or methods may not be comparable. Serial testing should be performed using the same method. Current interpretive data last revised 21. Blood 04/11/2024 11:1 0 AM DENTAL SURGERY DOCTOR 04/11/2024 11:30 AM DENTAL SURGERY DOCTOR us Luis Coreas SAFETY AND HEALTH MANAGER LAB BLOOD ORDERABLES Final [facility] [id number] [facility] Department [place] [address] * Colonoscopy (07/11/2023 7:15 AM CDT) Anatomical Region Laterality Modality Other Narrative Procedure Note Waldo Tan MD - 07/11/2023 7:15 AM CDT [facility] ENDOS[facility] Patient Name: Ming Taylor Procedure Date: 07/11/2023 7:15 AM Date of : 1955 Admit Type: Outpatient Age: 68 Gender: Male Attending MD: Waldo Tan M.D. Room: [facility] ENDOSCOPY ROOM 06 Note Status: Finalized Procedure: Colonoscopy Indications: Follow-up of chronic ulcerative pancolitis Referring MD: Madeline Champion F.N.P. Providers: Waldo Tan M.D. Medicines: Monitored Anesthesia Care Complications: No immediate complications. Estimated Blood Loss: Estimated blood loss: none. Procedure: Pre-Anesthesia Assessment: - Prior to the procedure, a History and Physicalwas performed, and patient medications and allergieswere reviewed. The risks and benefits of the procedureand the sedation options and risks were discussed withthe patient. All questions were answered and informed consent was obtained. Patient identification and proposed procedure were verified. After reviewingthe risks and benefits, the patient was deemed in satisfactory condition to undergo the procedure.The anesthesia plan was to use monitored anesthesiacare (MAC). Immediately prior to administration of medications, the patient was re-assessed foradequacy to receive sedatives. The heart rate, respiratory rate, oxygen saturations, blood pressure, adequacyof pulmonary ventilation, and response to care were monitored throughout the procedure. The physical status of the patient was re-assessed after the procedure. The benefits, risks and alternatives of theprocedure and sedation were discussed and informed consentwas obtained. All questions were answered. Please referto the signed informed consent document in the medical record. The scope was passed under direct vision.The [id number]-[id number] colonoscope was introduced through theanus and advanced to the terminal ileum. The colonoscopy was performed without difficulty. The patient tolerated the procedure well. The quality of thebowel preparation was poor. Scope withdrawal time was 7 minutes. Prep was administered in a split dose. Findings: The perianal and digital rectal examinations were normal. The terminal ileum appeared normal. Multiple large-mouthed diverticula were found in the sigmoid colonand descending colon. Non-bleeding internal hemorrhoids were found during retroflexion. The hemorrhoids were small. Biopsies were taken with a cold forceps From the cecum, right colon, transverse colon, left colon, and rectum for histology. Impression: - Preparation of the colon was poor. - The examined portion of the ileum was normal. - Diverticulosis in the sigmoid colon and in the descending colon. - Non-bleeding internal hemorrhoids. - Biopsies were taken with a cold forceps for histology From the cecum, right colon, transverse colon, left colon, and rectum for surveillance of ulcerative colitis. Recommendation: - Patient has a contact number available for emergencies. The signs and symptoms of potential delayed complications were discussed with thepatient. Return to normal activities tomorrow. Written discharge instructions were provided to thepatient. - High fiber diet. - Continue present medications. - Await pathology results. - Repeat colonoscopy in 6 months with extendedbowel prep because the bowel preparation was poor. - Return to GI clinic as previously scheduled. Waldo Tan M.D. Waldo Tan M.D. 07/11/2023 7:36:17 AM . Number of Addenda: 0 Note Initiated On: 07/11/2023 7:15 AM Recognized by the [employer] for promoting quality in endoscopy us Waldo Tan MD ENDOSCOPY PROCEDURES Final Resul t * CT Abd/Pelvis with contrast (02/17/2021 1:31 PM DENTAL SURGERY DOCTOR) Anatomical Region Laterality Modality Body N/A Computed Tomogra phy 02/17/2021 2:16 PM DENTAL SURGERY DOCTOR Impressions 02/17/2021 2:16 PM DENTAL SURGERY DOCTOR 1. Apparent filling defect in the right lower lobe pulmonary arteries which could represent pulmonary embolism. Recommend further evaluation with CT-PE. 2. Colonic diverticulosis without evidence of diverticulitis. 3. Mild interval increase in the size of mildly hyperattenuating lesion in the right kidney. Recommend further evaluation with abdominal MRI. 4. Mild periportal widening with a stable 1.8 cm enhancing observation in liver segment 4 which is indeterminate. This can be further evaluated on the abdominal MRI. The Critical results were discussed with Ms. Reynoso at Dr. Gillis's office by Dr. Santos on 02/17/2021 at 2:10 PM Electronically signed by: John Santos M.D. , PHD Narrative 02/17/2021 2:16 PM DENTAL SURGERY DOCTOR EXAMINATION: Computed tomography of the abdomen and pelvis with intravenous contrast HISTORY: Left lower quadrant pain, history of ulcerative colitis TECHNIQUE: Transaxial computed tomographic images of the abdomen and pelvis were obtained with intravenous contrast according to the standard protocol after the uneventful administration of 100 mL Opti-Ray 350 intravenous contrast. COMPARISON: 08/16/2018 FINDINGS: No pneumothorax or pleural effusion. Tiny sub-4 mm nodules in the lower lobes appear stable. Small 5 mm groundglass focus in the left upper lobe (series 3 image 3) is likely infectious/inflammatory. Heart size within normal limits. There are apparent filling defects in the right lower lobe pulmonary arteries. Spleen is within normal size. Pancreas is unremarkable. 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 The right adrenal is normal. Gallbladder surgically absent. There is mild periportal widening. There is a 1.8 cm enhancing observation in the liver segment 4A/4B (series 3 image 60) which appears stable in size. Multiple bilateral renal cysts. In addition, there is a 3 cm mildly hyperattenuating lesion along the medial aspect of the right kidney (series 2 image 101) which has mildly increased in size. Scattered tiny sub-3 mm stones in the right kidney are noted. Bladder is minimally thickened wall. Prostate is mildly enlarged. There is colonic diverticulosis which is severe at sigmoid colon. No CT evidence of diverticulitis. Status post appendectomy. No bowel obstruction. Abdominal aorta is of normal caliber. No retroperitoneal or pelvic adenopathy. Portal vein, splenic vein and superior mesenteric vein are patent. Superior mesenteric artery and celiac axis are also patent. No suspicious osseous lesion. Procedure Note John Santos MD PhD - 02/17/2021 EXAMINATION: Computed tomography of the abdomen and pelvis with intravenous contrast HISTORY: Left lower quadrant pain, history of ulcerative colitis TECHNIQUE: Transaxial computed tomographic images of the abdomen and pelvis were obtained with intravenous contrast according to the standard protocol after the uneventful administration of 100 mL Opti-Ray 350 intravenous contrast. COMPARISON: 08/16/2018 FINDINGS: No pneumothorax or pleural effusion. Tiny sub-4 mm nodules in the lower lobes appear stable. Small 5 mm groundglass focus in the left upper lobe (series 3 image 3) is likely infectious/inflammatory. Heart size within normal limits. There are apparent filling defects in the right lower lobe pulmonary arteries. Spleen is within normal size. Pancreas is unremarkable. 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 The right adrenal is normal. Gallbladder surgically absent. There is mild periportal widening. There is a 1.8 cm enhancing observation in the liver segment 4A/4B (series 3 image 60) which appears stable in size. Multiple bilateral renal cysts. In addition, there is a 3 cm mildly hyperattenuating lesion along the medial aspect of the right kidney (series 2 image 101) which has mildly increased in size. Scattered tiny sub-3 mm stones in the right kidney are noted. Bladder is minimally thickened wall. Prostate is mildly enlarged. There is colonic diverticulosis which is severe at sigmoid colon. No CT evidence of diverticulitis. Status post appendectomy. No bowel obstruction. Abdominal aorta is of normal caliber. No retroperitoneal or pelvic adenopathy. Portal vein, splenic vein and superior mesenteric vein are patent. Superior mesenteric artery and celiac axis are also patent. No suspicious osseous lesion. IMPRESSION: 1. Apparent filling defect in the right lower lobe pulmonary arteries which could represent pulmonary embolism. Recommend further evaluation with CT-PE. 2. Colonic diverticulosis without evidence of diverticulitis. 3. Mild interval increase in the size of mildly hyperattenuating lesion in the right kidney. Recommend further evaluation with abdominal MRI. 4. Mild periportal widening with a stable 1.8 cm enhancing observation in liver segment 4 which is indeterminate. This can be further evaluated on the abdominal MRI. The Critical results were discussed with Ms. Reynoso at Dr. Gillis's office by Dr. Santos on 02/17/2021 at 2:10 PM Electronically signed by: John Santos M.D. , PHD us Bashir Gillis MD IMG CT PROCEDURES Final Result from Last 3 Months or Most Recently Relevant to Health Maintenance Insurance [place] MEDICARE FUNDS [place] [employer] [facility] [facility] MEDICARE [facility] MEDICARE FUNDS Advance Directives For more information, please contact: [phone] * Full Code (Latest Code Status on File) Date Activated Date Inactivated Comments 05/09/2021 10:54 AM 05/09/2021 5:38 PM * Full Code Date Activated Date Inactivated Comments 05/09/2021 10:54 AM 05/09/2021 10:54 AM * Full Code Date Activated Date Inactivated Comments 04/21/2019 12:40 PM 04/21/2019 7:11 PM * Full Code Date Activated Date Inactivated Comments 09/17/2017 9:45 AM 09/17/2017 1:58 PM Care Teams Loan Documentation Specialist Relationship Specialty Start Date End Date Neftaly Hawthorne MD PCP - General Internal Medicine 10/10/17 Ariel Ford Jr., MD Medical Oncologist/Fern Picker Medical Oncology 01/23/19 Sebastián Muñiz II, MD Referring Physician Otolaryngology 04/01/19 Narciso Hauser MD [address] [place] [address] Consulting Physician Pulmonary Disease 07/30/19
--- OUTSIDE RECORDS SUMMARY | 2025-01-15 18:23 | XMS_ITS | Encounter Summary ---
Author Organization [facility] Facility Care Team Providers Care Pegger Name Role Phone Bessie Jamison MD Primary Care Provider [phone] Bessie Jamison MD Primary Care Provider [phone] Bessie Hawthorne MD Primary Care Provider [phone] Logan Contreras MD, Ariel Unavailable + [phone] Antonino FUENTES MD, Sebastián Grant Unavailable [phone] Narciso Hauser MD Unavailable [phone] Encounter Details Date Type Department Care Team (Latest Contact Info) Description 01/13/2016 Orders Only [facility] CLINCONV ProviderMinh MD [address] [place] [address] Social History Tobacco Use Types Packs/Day Years Used Date Smoking Tobacco: Never Assessed Sex and Gender Information Value Date Recorded Sex Assigned at Not on file Legal 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 us Historical Provider Final Res ult documented in this encounter Visit Diagnoses Not on filedocumented in this encounter Care Teams Pegger Relationship Specialty Start Date End Date Bessie Jamison MD PCP - General 07/08/16 09/16/17 Bessie Jamison MD PCP - General 09/17/17 09/27/17 Bessie Hawthorne MD PCP - General Internal Medicine 10/10/17 Ariel Ford Jr., MD Medical Oncologist/Blending Coordinator Medical Oncology 01/23/19 Sebastián Muñiz II, MD Referring Physician Otolaryngology 04/01/19 Narciso Hauser MD [address] [facility] [address] Consulting Physician Pulmonary Disease 07/30/19 documented as of this encounter
--- OUTSIDE RECORDS SUMMARY | 2025-01-15 18:23 | XMS_ITS | Encounter Summary ---
Author Organization [facility] Facility Care Team Providers Care Beam Saw Operator Name Role Phone Bessie Jamison MD Primary Care Provider [phone] Bessie Jamison MD Primary Care Provider [phone] Bessie Hawthorne MD Primary Care Provider + [phone] Logan Contreras MD, Ariel Unavailable + [phone] Antonino FUENTES MD, Sebastián Grant Unavailable [phone] Narciso Hauser MD Unavailable [phone] Encounter Details Date Type Department Care Team (Latest Contact Info) Description 12/30/2013 Orders Only [facility] CLINCONV ProviderMinh MD [address] [place] [address] Social History Tobacco Use Types Packs/Day Years Used Date Smoking Tobacco: Never Assessed Sex and Gender Information Value Date Recorded Sex Assigned at Not on file 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 us Historical Provider Final Res ult documented in this encounter Visit Diagnoses Not on filedocumented in this encounter Care Teams Beam Saw Operator Relationship Specialty Start Date End Date Bessie Jamison MD PCP - General 07/08/16 09/16/17 Bessie Jamison MD PCP - General 09/17/17 09/27/17 Bessie Hawthorne MD PCP - General Internal Medicine 10/10/17 Ariel Ford Jr., MD Medical Oncologist/Sulfuric Acid Plant Supervisor Medical Oncology 01/23/19 Sebastián Muñiz II, MD Referring Physician Otolaryngology 04/01/19 Narciso Hauser MD [address] [facility] [place] [address] Consulting Physician Pulmonary Disease 07/30/19 documented as of this encounter
--- OUTSIDE RECORDS SUMMARY | 2025-01-15 18:23 | XMS_ITS | Clinical Summary ---
Author Organization [facility] Address [facility] [place] [address] Care Team Providers Care Bakery Team Leader Name Role Phone Neftaly Hawthorne MD Primary Care Provider [phone] Social History Tobacco Use Types Packs/Day Years Used Date Smoking Tobacco: Never Assessed Sex and Gender Information Value Date Recorded Sex Assigned at Not on file Legal Sex Male 6:07 PM CDT Gender Identity Not on file Sexual Orientation Not on file Last Filed Vital Signs Vital Sign Reading Time Taken Comments Blood Pressure 115/75 01/26/2017 7:07 AM ANIMAL CYTOLOGIST Pulse 81 01/26/2017 7:07 AM ANIMAL CYTOLOGIST Temperature - - Respiratory Rate - - Oxygen Saturation - - Inhaled Oxygen Concentration - - Weight 100.7 kg (222 lb) 01/26/2017 7:07 AM ANIMAL CYTOLOGIST Height 175.3 cm (5' 9) 06/29/2016 7:05 AM CDT Body Mass Index 32.78 06/29/2016 7:05 AM CDT Plan of Treatment Health Maintenance Due Date Last Done Comments Colorectal Cancer Screening Colonoscopy (10 Years) 1955 Hepatitis C 1974 Pneumococcal Vaccine: 50+ Years (2 of 2 - PCV20 or PCV21) 01/15/2018 01/15/2017 COVID-19 Vaccine ( - 2024-2 6 season) 2024 Influenza Adult (#1) 2024 10/30/2018, 05/21/2018 DTaP, Tdap and Td Vaccines ( 2 - Td or Tdap) 12/14/2024 12/14/2014 RSV Immunization or 60+ Years (1 - 1-dose 75+ series) 2031 Zoster Vaccines Completed 10/31/2018, 06/12/2018 Hepatitis A Vaccines Aged Out No long er eligible based on patient's age to complete this topic Meningococcal B Vaccine Aged Out No l onger eligible based on patient's age to complete this topic Meningococcal Vaccine Aged Out No autumn deshawn eligible based on patient's age to complete this topic RSV Immunizations Under 20 Months Aged Out No longer eligible b ased on patient's age to complete this topic Insurance [employer] OPEN ACCESS [facility] H AND R FUNDS Care Teams Bakery Team Leader Relationship Specialty Start Date End Date Neftaly Hawthorne MD [address] [id number] PCP - General INTERNAL MEDICINE 06/06/19
--- OUTSIDE RECORDS SUMMARY | 2025-01-15 18:23 | XMS_ITS | Encounter Summary ---
Author Organization [facility] Address [address] [facility] [place] [address] Care Team Providers Care Yarn Examiner Skeins Name Role Phone Neftaly Jamison MD Primary Care Provider [phone] Encounter Details Date Type Department Care Team (Late st Contact Info) Description 08/13/2020 Lab Requisition [facility] DermPath Lab [address] [facility] [place] [phone] Sadi Irizarry MD [address] [facility] [place] [address] Social History Tobacco Use Types Packs/Day Years Used Date Smoking Tobacco: Former Alcohol Use Standard Drinks/Week Comments No 0 (1 standard drink = 0.6 oz pur e alcohol) Sex and Gender Information Value Date Recorded Sex Assigned at Not on file Legal Sex Male 6:12 PM CRIMP SETTER Gender Identity Not on file Sexual Orientation Not on file documented as of this encounter Plan of Treatment Not on file documented as of this encounter Procedures Procedure Name Priority Date/Time Associated Diagnosis Comments DERMATOPATHOLOGY Routine 08/12/2020 3:33 AM CDT documented in this encounter Results * DERMATOPATHOLOGY (08/12/2020 3:33 AM CDT) Case Report Dermatopathology Report Case: [id number] Authorizing Provider: Sadi Irizarry MD Collected: 08/12/2020 03:33 AM Ordering Location: [facility] DermPath Lab Received: 08/13/2020 06:09 AM Pathologist: Perla Vargas MD Specimen: Skin, right arm 3:06 PM CDT DERMATOPATHOLOGY LABORATORY Final Diagnosis Specimen A. SKIN, right arm: SQUAMOUS CELL CARCINOMA, WELL DIFFERENTIATED (C44.622) 3:06 PM CDT DERMATOPATHOLOGY LABORATORY at 1505 CDT Clinical History [facility]A. Path#[id number] 3:06 PM CDT DERMATOPATHOLOGY LABORATORY Gross Description Specimen A: Received is one formalin filled container labeled with the patient's name and designated right arm. The specimen consists of a shave biopsy measuring 10x9x4 mm, bisected. Jar 0. 3:06 PM CDT DERMATOPATHOLOGY LABORATORY Microscopic Description Specimen A. SKIN, right arm: Arising in the epidermis and extending into the dermis there are irregularly shaped aggregates of keratinocytes showing evidence of premature cornification. 3:06 PM CDT DERMATOPATHOLOGY LABORATORY Disclaimer An external and internal positive and negative controls are appropriate for the histochemical, immunohistochemical and immunofluorescence stain(s) in this case (if any), except where stated explicitly. The performance characteristics of the stain(s) cited in this report were developed and its performance characteristic determined by the Dermatopathology Laboratory at [facility], directed by Dr. Briana Luis. These tests need not be, and therefore are not, approved by the [place] Food and Drug Administration. The tests are used for clinical purposes. Billing Codes Specimen Charges Stain Charges 96949 1 3:06 PM CDT DERMATOPATHOLOGY LABORATORY Embedded Images 3:06 PM CDT DERMATOPATHOLOGY LABORATORY Pathology/Cytolo gy TISSUE SPECIMEN FROM SKIN / Unknown 08/12/2020 3:33 AM CDT 08/13/2020 6:09 AM CDT us Sadi Irizarry MD LAB - PATHOLOGY/CYTOLOGY ORDER JOSSUE Final Result DERMATOPATHOLOGY LABORATORY [facility] - Department of Dermatology [address], [address] [phone] documented in this encounter Visit Diagnoses Not on filedocumented in this encounter Care Teams Yarn Examiner Skeins Relationship Specialty Start Date End Date Neftaly Jamison MD [address] [place] [address] PCP - General 07/20/14 documented as of this encounter
--- OUTSIDE RECORDS SUMMARY | 2025-01-15 18:23 | XMS_ITS | Encounter Summary ---
Author Organization [facility] Address [address] [facility] [place] [address] Care Team Providers Care Casino Gaming Inspector Name Role Phone Neftaly Jamison MD Primary Care Provider [phone] Encounter Details Date Type Department Care Team (Late st Contact Info) Description 09/23/2020 Lab Requisition [facility] DermPath Lab [address] [facility] [place] [phone] Sadi Irizarry MD [address] [facility] [address] Social History Tobacco Use Types Packs/Day Years Used Date Smoking Tobacco: Former Alcohol Use Standard Drinks/Week Comments No 0 (1 standard drink = 0.6 oz pur e alcohol) Sex and Gender Information Value Date Recorded Sex Assigned at Not on file 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 Gender Identity Not on file Sexual Orientation Not on file documented as of this encounter Plan of Treatment Not on file documented as of this encounter Procedures Procedure Name Priority Date/Time Associated Diagnosis Comments DERMATOPATHOLOGY Routine 09/22/2020 3:33 AM CDT documented in this encounter Results * DERMATOPATHOLOGY (09/22/2020 3:33 AM CDT) Case Report Dermatopathology Report Case: [id number] Authorizing Provider: Sadi Irizarry MD Collected: 09/22/2020 03:33 AM Ordering Location: [facility] DermPath Lab Received: 09/23/2020 06:02 AM Pathologist: Marisela Cardona MD Specimen: Skin, left clavicle 4:48 PM CDT DERMATOPATHOLOGY LABORATORY Final Diagnosis Specimen A. 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 Path# [id number]. Check margins. 4:48 PM CDT DERMATOPATHOLOGY LABORATORY Gross Description Specimen A: Received is one formalin filled container labeled with the patient's name and designated left clavicle. The specimen consists of a non-oriented ellipse of skin measuring 72g60o6hs. The epidermal surface consists of centrally located 3x3mm previous biopsy site. The margin is inked green. The 12 o'clock and 6 o'clock tips are submitted in cassette 1. The remainder of the ellipse is serially sectioned and submitted in cassette 2-3. Jar 0. 4:48 PM CDT DERMATOPATHOLOGY LABORATORY Microscopic Description Specimen A. SKIN, left clavicle: There are fibroblasts and collagen bundles oriented parallel to the skin surface. There are elongated blood vessels, some of which are oriented perpendicular to the skin surface. No basal cell carcinoma is identified. 4:48 PM CDT DERMATOPATHOLOGY LABORATORY Disclaimer An external and internal positive and negative controls are appropriate for the histochemical, immunohistochemical and immunofluorescence stain(s) in this case (if any), except where stated explicitly. The performance characteristics of the stain(s) cited in this report were developed and its performance characteristic determined by the Dermatopathology Laboratory at [facility], directed by Dr. Briana Luis. These tests need not be, and therefore are not, approved by the [place] Food and Drug Administration. The tests are used for clinical purposes. Billing Codes Specimen Charges Stain Charges 19985 1 4:48 PM CDT DERMATOPATHOLOGY LABORATORY Embedded Images 4:48 PM CDT DERMATOPATHOLOGY LABORATORY Pathology/Cytolo gy TISSUE SPECIMEN FROM SKIN / Unknown 09/22/2020 3:33 AM CDT 09/23/2020 6:02 AM CDT us Sadi Irizarry MD LAB - PATHOLOGY/CYTOLOGY ORDER JOSSUE Final Result DERMATOPATHOLOGY LABORATORY [facility] - Department of Dermatology [facility] [address] [place] [address], [address] [phone] documented in this encounter Visit Diagnoses Not on filedocumented in this encounter Care Teams Casino Gaming Inspector Relationship Specialty Start Date End Date Neftaly Jamison MD [address] [place] [address] PCP - General 07/20/14 documented as of this encounter
--- OUTSIDE RECORDS SUMMARY | 2025-01-15 18:23 | XMS_ITS | Encounter Summary ---
Author Organization [facility] Facility Care Team Providers Care Ebd Special Education Teacher Name Role Phone Bessie Jamison MD Primary Care Provider [phone] Bessie Jamison MD Primary Care Provider [phone] Bessie Hawthorne MD Primary Care Provider + [phone] Logan Contreras MD, Ariel Unavailable + [phone] Antonino FUENTES MD, Sebastián Grant Unavailable [phone] Narciso Hauser MD Unavailable [phone] Encounter Details Date Type Department Care Team (Latest Contact Info) Description 07/18/2016 Orders Only [facility] CLINCONV ProviderMinh MD [address] [place] [address] Social History Tobacco Use Types Packs/Day Years Used Date Smoking Tobacco: Never Assessed Sex and Gender Information Value Date Recorded Sex Assigned at Not on file Legal Sex Male 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 us Historical Provider Final Res ult documented in this encounter Visit Diagnoses Not on filedocumented in this encounter Care Teams Ebd Special Education Teacher Relationship Specialty Start Date End Date Bessie Jamison MD PCP - General 07/08/16 09/16/17 Bessie Jamison MD PCP - General 09/17/17 09/27/17 Bessie Hawthorne MD PCP - General Internal Medicine 10/10/17 Ariel Ford Jr., MD Medical Oncologist/Clinical Product Manager Medical Oncology 01/23/19 Sebastián Muñiz II, MD Referring Physician Otolaryngology 04/01/19 Narciso Hauser MD [address] [place] [address] Consulting Physician Pulmonary Disease 07/30/19 documented as of this encounter
--- OUTSIDE RECORDS SUMMARY | 2025-01-15 18:23 | XMS_ITS | Encounter Summary ---
Author Organization [facility] Address [address] [facility] [place] [address] Care Team Providers Care Deli Slicer Name Role Phone Neftaly Jamison MD Primary Care Provider [phone] Encounter Details Date Type Department Care Team (Late st Contact Info) Description 10/07/2020 Lab Requisition [facility] Care DermPath Lab [address] [facility] [place] [id number] Sadi Irizarry MD [address] [facility] [place] [address] Social History Tobacco Use Types Packs/Day Years Used Date Smoking Tobacco: Former Alcohol Use Standard Drinks/Week Comments No 0 (1 standard drink = 0.6 oz pur e alcohol) Sex and Gender Information Value Date Recorded Sex Assigned at Not on file 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 Gender Identity Not on file Sexual Orientation Not on file documented as of this encounter Plan of Treatment Not on file documented as of this encounter Procedures Procedure Name Priority Date/Time Associated Diagnosis Comments DERMATOPATHOLOGY Routine 10/06/2020 12:0 0 AM CDT documented in this encounter Results * DERMATOPATHOLOGY (10/06/2020 12:00 AM CDT) Case Report Dermatopathology Report Case: [id number] Authorizing Provider: Sadi Irizarry MD Collected: 10/06/2020 12:00 AM Ordering Location: [facility] DermPath Lab Received: 10/07/2020 08:30 AM Pathologist: Azul Mata MD Specimen: Skin, right arm 4:11 PM T DERMATOPATHOLOGY LABORATORY Final Diagnosis Specimen A. 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 Path#[id number]. Check margins 4:11 PM CDT DERMATOPATHOLOGY LABORATORY Gross Description Specimen A: Received is one formalin filled container labeled with the patient's name and designated right arm. The specimen consists of a non-oriented ellipse of skin measuring 11g01t8 mm. The epidermal surface is unremarkable. The margin is inked green. The 12 o'clock and 6 o'clock tips are submitted in cassette 1. The remainder of the ellipse is serially sectioned and submitted in cassette 2-3. Jar 0. 4:11 PM CDT DERMATOPATHOLOGY LABORATORY Microscopic Description Specimen A. SKIN, right arm: There are fibroblasts and collagen bundles oriented parallel to the skin surface. There are elongated blood vessels, some of which are oriented perpendicular to the skin surface. No residual squamous cell carcinoma is identified. 4:11 PM T DERMATOPATHOLOGY LABORATORY Disclaimer An external and internal [...] purposes. Billing Codes Specimen Charges Stain Charges 15704 1 4:11 PM CDT DERMATOPATHOLOGY LABORATORY Embedded Images 4:11 PM CDT DERMATOPATHOLOGY LABORATORY Pathology/Cytolog y TISSUE SPECIMEN FROM SKIN / Unknown 10/06/2020 10/07/2020 8:30 AM CDT us Sadi Irizarry MD LAB - PATHOLOGY/CYTOLOGY ORDER JOSSUE Final Result DERMATOPATHOLOGY LABORATORY [facility] - Department of Dermatology [address], [address] [phone] documented in this encounter Visit Diagnoses Not on filedocumented in this encounter Care Teams Deli Slicer Relationship Specialty Start Date End Date Neftaly Jamison MD [address] [place] [address] PCP - General 07/20/14 documented as of this encounter
--- OUTSIDE RECORDS SUMMARY | 2025-01-15 18:23 | XMS_ITS | Encounter Summary ---
Author Organization [facility] Address [address] [facility] [place] [address] Care Team Providers Care Catalyst Impregnator Name Role Phone Neftaly Jamison MD Primary Care Provider [phone] Encounter Details Date Type Department Care Team (Late st Contact Info) Description 08/03/2021 Lab Requisition [facility] Care DermPath Lab [address] [facility] [place] [phone] Sadi Irizarry MD [address] [facility] [place] [address] Social History Tobacco Use Types Packs/Day Years Used Date Smoking Tobacco: Former Alcohol Use Standard Drinks/Week Comments No 0 (1 standard drink = 0.6 oz pur e alcohol) Sex and Gender Information Value Date Recorded Sex Assigned at Not on file 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 Gender Identity Not on file Sexual Orientation Not on file documented as of this encounter Plan of Treatment Not on file documented as of this encounter Procedures Procedure Name Priority Date/Time Associated Diagnosis Comments DERMATOPATHOLOGY Routine 08/02/2021 12:0 0 AM CDT documented in this encounter Results * DERMATOPATHOLOGY (08/02/2021 12:00 AM CDT) Case Report Dermatopathology Report Case: [id number] Authorizing Provider: Sadi Irizarry MD Collected: 08/02/2021 12:00 AM Ordering Location: [facility] DermPath Lab Received: 08/03/2021 06:10 AM Pathologist: Marisela Cardona MD Specimens: A) - Skin, left lower bicep B) - Skin, left upper forearm 4:35 PM T DERMATOPATHOLOGY LABORATORY Final Diagnosis Specimen A. SKIN, left lower bicep: BASAL CELL CARCINOMA, NODULAR TYPE (C44.619) Specimen B. SKIN, left upper forearm: SQUAMOUS CELL CARCINOMA IN SITU, VERRUCOUS-HYPERTROP HIC TYPE; PRESENT AT THE BASE OF THE SPECIMEN (D04.62) (see microscopic description and comment) 4:35 PM T DERMATOPATHOLOGY LABORATORY at 1635 CDT Clinical History A: BCCA. Path # [id number]. B: SCCA. Path # [id number]. 4:35 PM CDT DERMATOPATHOLOGY LABORATORY Gross Description Specimen A: Received is one formalin filled container labeled with the patient's name and designated left lower bicep. The specimen consists of a shave biopsy measuring 5t3b8cl. Jar 0. Specimen B: Received is one formalin filled container labeled with the patient's name and designated left upper forearm. The specimen consists of a shave biopsy measuring 02b9w6bj & 5d2c6zd. Jar 0. 4:35 PM T DERMATOPATHOLOGY LABORATORY Microscopic Description Specimen A. SKIN, left lower bicep: Within the dermis there are aggregates of basaloid cells with a high nuclear to cytoplasmic ratio and peripheral palisading. Specimen B. SKIN, left upper forearm: The epidermis is acanthotic and shows full thickness disorderly maturation of keratinocytes, mitoses at different levels, and dyskeratotic cells. There is overlying parakeratosis and hyperkeratosis. The lesion extends to the base of the biopsy. COMMENT: An invasive squamous cell carcinoma cannot be ruled out. 4:35 PM T DERMATOPATHOLOGY LABORATORY Disclaimer An external and internal positive and negative controls are appropriate for the histochemical, immunohistochemical and immunofluorescence stain(s) in this case (if any), except where stated explicitly. The performance characteristics of the stain(s) cited in this report were developed and its performance characteristic determined by the Dermatopathology Laboratory at [facility], directed by Dr. Briana Luis. These tests need not be, and therefore are not, approved by the [place] Food and Drug Administration. The tests are used for clinical purposes. Billing Codes Specimen Charges Stain Charges 74495 42491 1 1 2 4:35 PM CDT DERMATOPATHOLOGY LABORATORY Embedded Images 2 4:35 PM CDT DERMATOPATHOLOGY LABORATORY Pathology/Cytology TISSUE SPECIMEN FROM SKIN / Unknown 08/02/2021 08/03/2021 6:10 AM CDT Miscellaneous samples (specimen) TISSUE SPECIMEN FROM SKIN / Unknown 08/02/2021 08/03/2021 6:10 AM CDT us Sadi Irizarry MD LAB - PATHOLOGY/CYTOLOGY ORDER JOSSUE Final Result Performing Organization Address City/State/[facility] Co de Phone Number DERMATOPATHOLOGY LABORATORY [facility] - Department of Dermatology [facility] Medicine [address] [place] [address], [address] [phone] documented in this encounter Visit Diagnoses Not on filedocumented in this encounter Care Teams Catalyst Impregnator Relationship Specialty Start Date End Date Neftaly Jamison MD [address] [place] [place] [address] PCP - General 07/20/14 documented as of this encounter
--- OUTSIDE RECORDS SUMMARY | 2025-01-15 18:23 | XMS_ITS | Encounter Summary ---
Author Organization [facility] Address [address] [place] [address] Care Team Providers Care Boat Oar Maker Name Role Phone Neftaly Jamison MD Primary Care Provider [phone] Encounter Details Date Type Department Care Team (Late st Contact Info) Description 07/25/2022 Lab Requisition [facility] - DermPath Lab [address] [facility] [place] [phone] Sadi Irizarry MD [address] [place] [address] Social History Tobacco Use Types Packs/Day Years Used Date Smoking Tobacco: Former Alcohol Use Standard Drinks/Week Comments No 0 (1 standard drink = 0.6 oz pur e alcohol) Sex and Gender Information Value Date Recorded Sex Assigned at Not on file 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 Gender Identity Not on file Sexual Orientation Not on file documented as of this encounter Plan of Treatment Not on file documented as of this encounter Procedures Procedure Name Priority Date/Time Associated Diagnosis Comments DERMATOPATHOLOGY Routine 07/24/2022 12:0 0 AM CDT documented in this encounter Results * DERMATOPATHOLOGY (07/24/2022 12:00 AM CDT) Case Report Dermatopathology Report Case: [id number] Authorizing Provider: Sadi Irizarry MD Collected: 07/24/2022 12:00 AM Ordering Location: [facility] DermPath Lab Received: 07/25/2022 07:55 AM Pathologist: Azul Mata MD Specimen: Skin, right lat neck 11:36 AM CDT DERMATOPATHOLOGY LABORATORY Final Diagnosis Specimen A. SKIN, right lat neck: SQUAMOUS CELL CARCINOMA IN SITU, PRESENT AT THE BASE OF THE SPECIMEN (D04.4) (see microscopic description and comment) 11:36 AM CDT DERMATOPATHOLOGY LABORATORY at 1136 CDT Clinical History BCCA vs. SCCA vs. [place] Path: [id number] 11:36 AM CDT DERMATOPATHOLOGY LABORATORY Gross Description Specimen A: Received is one formalin filled container labeled with the patient's name and designated right lat neck. The specimen consists of a shave biopsy measuring 7x6x1 mm. Jar 0. 11:36 AM CDT DERMATOPATHOLOGY LABORATORY Microscopic Description Specimen A. SKIN, right lat neck: The epidermis shows parakeratosis, full thickness disorderly maturation of keratinocytes, mitoses at different levels, and dyskeratotic cells. The lesion extends to the base of the biopsy. COMMENT: An invasive squamous cell carcinoma cannot be ruled out. 11:36 AM CDT DERMATOPATHOLOGY LABORATORY Disclaimer An external and internal positive and negative controls are appropriate for the histochemical, immunohistochemical and immunofluorescence stain(s) in this case (if any), except where stated explicitly. The performance characteristics of the stain(s) cited in this report were developed and its performance characteristic determined by the Dermatopathology Laboratory at [facility], directed by Dr. Briana Luis. These tests need not be, and therefore are not, approved by the [place] Food and Drug Administration. The tests are used for clinical purposes. Billing Codes Specimen Charges Stain Charges 80571 1 11:36 AM CDT DERMATOPATHOLOGY LABORATORY Embedded Images 11:36 AM CDT DERMATOPATHOLOGY LABORATORY Pathology/Cytolog y TISSUE SPECIMEN FROM SKIN / Unknown 07/24/2022 07/25/2022 7:55 AM CDT us Sadi Irizarry MD LAB - PATHOLOGY/CYTOLOGY ORDER JOSSUE Final Result DERMATOPATHOLOGY LABORATORY [facility] - Department of Dermatology [facility] Medicine [address] [place] [address], [address] [phone] documented in this encounter Visit Diagnoses Not on filedocumented in this encounter Care Teams Boat Oar Maker Relationship Specialty Start Date End Date Neftaly Jamison MD [address] [place] [address] PCP - General 07/20/14 documented as of this encounter
== END 2025-01-15 09:59 | disposition home or self-care (01) ==
LOC: ANHSURGERY 10:04
PROVIDERS: PCP Internal Medicine; Visit Provider Neurological Surgery
DX: Z01.818 Encounter for other preprocedural examination (principal); R94.31 Abnormal electrocardiogram [ECG] [EKG]; M48.07 Spinal stenosis, lumbosacral region
CPT/HCPCS: 36415; 80048; 81001; 85027; 85610; 85730; 93005

== ENCOUNTER 2025-02-03 00:22 | Day surgery (SDC) | payer MEDICARE, OTHER, SELFPAY ==
--- OUTSIDE RECORDS SUMMARY | 2024-12-29 18:00 | XMS_ITS | Continuity of Care Document ---
Author Organization [facility] Address [address] [place] [address] Phone Care Team Providers Care Certified Orthotist/Pedorthist Name Role Phone Barbadian Neftaly SANDERS Unavailable Unavailable Allergies, Adverse Reactions, Alerts Substance Reaction Status Criticality codeine Active No Information Medications Medication Instructions Dosage Effective Dates (start - stop) Status Comments lidocaine 5 % topical patch apply 1 patch by transdermal route every day (May wear up to 12hours.) 1.00 patch - Active methocarbamol 500 mg tablet take 1 tablet by oral route 3 times every day 500 MG - Active omeprazole 20 mg capsule,delayed release take 1 capsule by oral route 2 times every day before a meal 20 MG - Active potassium chloride ER 10 mEq tablet,extended release take 1 Tablet by oral route 2 times every day 10 MEQ - Active MESALAMINE TAB 1.2GM DR TAKE 4 TABLETS DAILY WITH AMEAL - Active OLMESARTAN TAB 40MG TAKE 1 TABLET DAILY - Active fluoxetine 40 mg capsule TAKE 1 CAPSULE EVERY MORNING - Active TAMSULOSIN CAP 0.4MG TAKE 1 CAPSULE EVER Y EVENING - Active ropinirole 3 mg tablet take 1 tablet by mouth once daily at bedtime - Active buspirone 15 mg tablet TAKE 2 TABLETS TWICE A DAY - Active finasteride 5 mg tablet take 1 tablet by oral route every day 5 MG - Active Procedures Procedure Date BASIC METABOLIC PANEL(BMP) IMMUN ADMIN (INC PERCUTANEOUS) BELINDA, Faraz IRST INJ FLU VACC PRSV FREE INC ANTIG MED LIST DOCD IN RCRD OFFICE [id number] ROUTINE VENIPUNCTURE IL ROUTINE VENIPUNCTURE IL BASIC METABOLIC PANEL(BMP) PREVENTATIVE-EST: 65 & OVER IMMUN ADMIN (INC PERCUTANEOUS) BELINDA, F IRST INJ Pneumococcal Conjugate Vaccine (PCV20) J OFFICE HMITR-DXY-UBPLLXST OFFICE MNIQT-UAU-YFXQWGIT PREVENTATIVE-EST: 65 & OVER CBC, INC PLATELETS AND DIFFERENTIAL COMPREHEN METABOLIC PANEL CMP LIPID PANEL PSA, TOTAL ROUTINE VENIPUNCTURE IL IMMUN ADMIN (INC PERCUTANEOUS) SINGLE, F IRST INJ Flu Vac, quad (RIV4), Preservative And A ntibiotic Free IM OFFICE [id number]-BIE-UUNWTIBG Pt inelig neg scrn depres FALL RISK ASSESSMENT DOC'D PRES/ABSN URINE INCON ASSESS PPPS, subseq visit SYST BP GE 130 - 139MM HG DIAST BP 80-89 MM HG CBC, INC PLATELETS AND DIFFERENTIAL COMPREHEN METABOLIC PANEL CMP 3 LIPID PANEL ROUTINE VENIPUNCTURE IL Pt inelig neg scrn depres OFFICE [id number]-EOJ-ZLOFLMZS SYST BP GE 130 - 139MM HG DIAST BP 80-89 MM HG PSA, TOTAL ROUTINE VENIPUNCTURE IL PNEUMOVAX ADM MEDICARE PNEUMOVAX IMMUNIZATION FALL RISK ASSESSMENT DOC'D PRES/ABSN URINE INCON ASSESS Pt inelig neg scrn depres INIT PREVENT PHYS EXAM; LIMITED TO NEW B ENEFICIARY SYST BP GE 130 - 139MM HG DIAST BP < 80 MM HG IMMUN ADMIN (INC PERCUTANEOUS) EACH ADDT L TDAP INTRAMUSCULAR USE ELECTROCARDIOGRAM ECG WITH 12 LEADS INTE RP AND RPT CBC, INC PLATELETS AND DIFFERENTIAL COMPREHEN METABOLIC PANEL CMP 2 LIPID PANEL PSA, TOTAL, SCREENING MEDICARE ONLY TESTOSTERONE, TOTAL ROUTINE VENIPUNCTURE IL OFFICE YGGXX-NAS-[id number] IMMUN ADMIN (INC PERCUTANEOUS) SINGLE, F IRST INJ FLU VAC NO PRSV 4 ALYSON, 0.5mL DOSAGE OFFICE [id number]-[id number] BASIC METABOLIC PANEL(BMP) ROUTINE VENIPUNCTURE OFFICE LLOFI-YKR-SQUZRZDC CBC, INC PLATELETS AND DIFFERENTIAL ROUTINE VENIPUNCTURE LDL-CHOLESTEROL, DIRECT ROUTINE VENIPUNCTURE PREVENTATIVE-EST: 40-64 CBC, INC PLATELETS AND DIFFERENTIAL COMPREHEN METABOLIC PANEL CMP LIPID PANEL PSA, TOTAL ROUTINE VENIPUNCTURE IMMUN ADMIN (INC PERCUTANEOUS) SINGLE, F IRST INJ FLU VAC NO PRSV 4 ALYSON, 0.5mL DOSAGE OFFICE DRICF-FZF-RRSRUASY BASIC METABOLIC PANEL(BMP) CBC, INC PLATELETS AND DIFFERENTIAL IRON (FE), TOTAL TIBC, & % SATURATION ROUTINE VENIPUNCTURE OFFICE EAUWN-CWR-YEENZJVW PREVENTATIVE-EST: 40-64 CBC, INC PLATELETS AND DIFFERENTIAL COMPREHEN METABOLIC PANEL CMP 0 LIPID PANEL PSA, TOTAL TESTOSTERONE, TOTAL ROUTINE VENIPUNCTURE OFFICE ECYUP-ZGB-RCYMUCDD TORADOL PER 15 MG THERAPEUTIC, PROPHYLACTIC OR DIAG INJ IN TRA-MUSCLR/SQ OFFICE IQAQW-DAA-VVFIKQPJ BASIC METABOLIC PANEL(BMP) ROUTINE VENIPUNCTURE OFFICE LFDAD-MMB-[id number] Advance Directives Directive Yes / No Effective Date File Name No Information Encounters Encounter Description Practice Location Reason(s) For Visit Diagnoses Date Provider Providers Copied on Encounter [facility], [address], [place], [place], [address] , [place] tel: [phone] [facility] No Information 5 English Higginbotham. [address] [place], [place], [address] , [place]. tel:[phone] Referring Provider: Neftaly Hawthorne, [address] [place], [address] . tel:[phone] [facility], [address], [place], [place], [address] , [place] tel: [phone] [facility] No Information 5 English Higginbotham. [address] [place], [address] , [place]. tel:[phone] [facility], [address], [place], [place], [address] , [place] tel: [phone] [facility] No Information [id number] [place] [address], [facility] [address], [place], [place], [address] , . tel: [phone] Referring Provider: [place], [address] . tel:[phone] OFFICE YGMKM-CNE-IF [facility], [address], [place], [place], [address] , [place] tel: [phone] [facility] chronic problems (chief complaint) HTN, goal below 130/80AnxietyBack pain of lumbar region with sciaticaBody mass index [BMI] 34.0-34.9, adult Sep-1 5 English Higginbotham. [address], [address] , [place]. tel: [phone] Referring Provider: [place], [address] . tel:[phone] [facility], [address], [place], [place], [address] , [place] tel: [phone] [facility] No Information Sep-0 5 English Higginbotham. [address] [place], [address] , [place]. tel: [phone] [facility], [address], [place], [place], [address] , [place] tel: [phone] [facility] Back pain of lumbar region with sciaticaDegenerati on of intervertebral disc of lumbar region with discogenic back pain Sep-0 5 English Higginbotham. [address], [address] , [place]. tel: [phone] [facility] [place], [address], [place], [place], [address] , [place] tel: [phone] [facility] No Information Aug- 5 English Higginbotham. [address] [place], [address] , [place]. tel: [phone] [facility] [place], [address], [place], [place], [address] , [place] tel: [phone] [facility] No Information 5 Barbadian Neftaly. [address] [place], [address] , [place]. tel: [phone] [facility], [address], [place], [place], [address] , tel: [phone] [facility] Back pain of lumbar region with sciatica 5 English Higginbotham. [address] [place], [place], [address] , [place]. tel: [phone] [facility], [address], [place], [place], [address] , [place] tel: [phone] [facility] Benign hypertension 5 English Higginbotham. [address] [place], [address] , [place]. tel: [phone] Referring Provider: Neftaly Hawthorne, [address] [place], [address] . tel:[phone] [facility], [address], [place], [place], [address] , tel: [phone] [facility] No Information 5 Carly Koenig. [address] [place] [address], [id number] , . tel: [phone] Referring Provider: Neftaly Hawthorne, [address] [place], [address] . tel:[phone] [facility], [address], [place], [place], [address] , [place] tel: [phone] [facility] No Information 5 English Higginbotham. [address] [place], [address] , [place]. tel: [phone] PREVENTATIVE -EST: 65 & OVER [facility], [address], [place], [place], [address] , tel: [phone] [facility] [place] px (chief complaint) Body mass index [BMI] 35.0-35.9, adultUlcerative colitis with complication, unspecified locationHTN, goal below 130/80Hyperlipidem ia, unspecified hyperlipidemia typeAnnual physical examAnxiety 5 Barbadian Neftaly. [address] [place], [address] , [place]. tel: [phone] Referring Provider: Neftaly Hawthorne, [place], [address] . tel:[phone] [facility] [place], [address], [place], [place], [address] , [place] tel: [phone] [facility] No Information 4 Barbadian Neftaly. [address] [place], [address] , [place]. tel: [phone] [facility] [place], [address], [place], [place], [address] , [place] tel: [phone] [facility] Back pain of lumbar region with sciatica 4 English Higginbotham. [address] [place], [address] , [place]. tel: [phone] [facility] [place], [address], [place], [place], [address] , [place] tel: [phone] [facility] Back pain of lumbar region with sciaticaHemangioma of skin 4 English Higginbotham. [address] [place], [address] , [place]. tel: [phone] OFFICE RTIZM-LHG-KM PANDED [facility], [address], [place], [place], [address] , [place] tel: [phone] [facility] new problems (chief complaint) Back pain of lumbar region with sciatica 4 Barbadian Neftaly. [address] [place], [address] , [place]. tel: [phone] Referring Provider: [place], [address] . tel:[phone] [facility], [address], [place], [place], [address] , [place] tel: [phone] [facility] No Information 4 English Higginbotham. [address] [place], [address] , [place]. tel: [phone] OFFICE EBFLN-RHF-JA PANDED [facility] [place], [address], [place], [place], [address] , [place] tel: [phone] [facility] Chronic conditions (chief complaint) Body mass index [BMI] 36.0-36.9, adultLumbar degenerative disc disease 4 English Higginbotham. [address] [place], [place], [address] , [place]. tel: [phone] Referring Provider: [place], [address] . tel:[phone] [facility], [address], [place], [place], [address] , [place] tel: [phone] [facility] No Information 4 English Higginbotham. [address] [place], [address] , [place]. tel: [phone] PREVENTATIVE -EST: 65 & OVER [facility], [address], [place], [place], [address] , [place] tel: [phone] [facility] px (chief complaint) Body mass index [BMI] 36.0-36.9, adultAnnual physical examAnxietyUlcerat miracle colitis with complication, unspecified locationBenign hypertension 4 English Higginbotham. [address] [place], [address] , [place]. tel: [phone] Referring Provider: [place], [address] . tel:[phone] [facility], [address], [place], [place], [address] , [place] tel: [phone] [facility] No Information 4 Carly Koenig. [address] [place] [address], [place] [address], [place], [place], [address] , [place]. tel: [phone] Referring Provider: Neftaly Hawthorne, [place], [address] . tel:[phone] [facility], [address], [place], [place], [address] , tel: [phone] [facility] Benign hypertensionUlcera tive colitis with complication, unspecified locationHyperlipid emia, unspecified hyperlipidemia typeElevated PSA 4 English Higginbotham. [address] [place], [place], [address] , [place]. tel: [phone] Referring Provider: [place], [address] . tel:[phone] OFFICE CWBBS-GET-UN TAILED [facility], [address], [place], [place], [address] , tel: [phone] [facility] Chr conditions (chief complaint) Ulcerative colitis with complication, unspecified locationBenign hypertensionAnxiet yBody mass index [BMI] 34.0-34.9, adult 3 English Higginbotham. [address] [place], [address] , [place]. tel: [phone] Referring Provider: Neftaly Hawthorne, [place], [address] . tel:[phone] [facility], [address], [place], [place], [address] , tel: [phone] [facility] Medicare preventive (chief complaint)p x (chief complaint) Body mass index [BMI] 36.0-36.9, adultAnnual physical examAnxietyBenign hypertensionUlcera tive colitis with complication, unspecified locationElevated PSAOSA on CPAPDependence on other enabling machines and devices 3 English Higginbotham. [address] [place], [address] , [place]. tel: [phone] Referring Provider: [place], [address] . tel:[phone] [employer], [address], [place], [place], [address] , [place] tel: [phone] [facility] No Information 3 Carly Koenig. [address] [facility], [facility] [address], [place], [place], [address] , [place]. tel: [phone] Referring Provider: Neftaly Hawthorne, [address] [place], [address] . tel:[phone] [facility], [address], [place], [place], [address] , [place] tel: [phone] [facility] Benign hypertensionHyperl ipidemia, unspecified hyperlipidemia type 3 English Higginbotham. [address] [place], [address] , [place]. tel: [phone] Referring Provider: [place], [address] . tel:[phone] [facility], [address], [place], [place], [address] , [place] tel: [phone] [facility] No Information 2 English Higginbotham. [address] [place] [address], [address] , [place]. tel: [phone] [facility], [address], [place], [place], [address] , tel: [phone] [facility] No Information 2 English Higginbotham. [address] [place], [place], [address] , [place]. tel: [phone] OFFICE BTMTF-ZVO-AG TAILED [facility], [address], [place], [place], [address] , [place] tel: [phone] [facility] Chronic conditions (chief complaint)C hronic Conditions (chief complaint) HTN, goal below 130/80Ulcerative colitis with complication, unspecified locationBody mass index [BMI] pediatric, less than 5th percentile for ageHistory of pulmonary embolus (PE)Elevated PSA 2 English Higginbotham. [address] [place], [place], [address] , . tel: [phone] Referring Provider: [place], [address] . tel:[phone] [facility], [address], [place], [place], [address] , tel: [phone] [place] px (chief complaint)M edicare preventive (chief complaint) Annual physical examPE (pulmonary thromboembolism)An xietyHTN, goal below 130/80Ulcerative colitis with complication, unspecified locationBody mass index [BMI] 32.0-32.9, adult Apr- 2 English Higginbotham. [address] [place], [address] , . tel: [phone] Referring Provider: [place], [address] . tel:[phone] [facility], [address], [place], [place], [address] , tel: [phone] [place] Screening PSA (prostate specific antigen)HTN, goal below 130/80Hyperlipidem ia, unspecified hyperlipidemia typeTesticular hypofunction 2 English Higginbotham. [address], [address] , [place]. tel: [phone] Referring Provider: [place], [address] . tel:[phone] OFFICE YWQEY-QZX-TH [facility], [address], [place], [place], [address] , tel: [phone] [place] er follow up (chief complaint) Body mass index [BMI] 33.0-33.9, adultPE (pulmonary thromboembolism)Re nal lesionLiver lesion 1 English John. [place], [address] , . tel: [phone] Referring Provider: [place], [address] . tel:[phone] [facility], [address], [place], [place], [address] , tel: [phone] [place] No Information 1 English Higginbotham. [address], [address] , . tel: [phone] Referring Provider: [place], [address] . tel:[phone] OFFICE OWBYF-DWV-YC TAILED [facility], [address], [place], [place], [address] , tel: [phone] [place] chronic conditions (chief complaint) Body mass index (BMI) 34.0-34.9, adultRLS (restless legs syndrome)Ulcerativ e colitis with complication, unspecified locationHTN, goal below 130/80Anxiety 1 English Higginbotham. [address], [address] , . tel: [phone] Referring Provider: [place], [address] . tel:[phone] OFFICE RMMQM-ENY-DQ [facility], [address], [place], [place], [address] , tel: [phone] [place] red area (chief complaint) Body mass index (BMI) 34.0-34.9, adultCellulitis, unspecified cellulitis site Aug- 1 English Higginbotham. [place], [address] , [place]. tel: [phone] Referring Provider: [place], [address] . tel:[phone] [facility], [address], [place], [place], [address] , tel: [phone] [place] Elevated LDL cholesterol level May- 1 English Higginbotham. [place], [address] , [place]. tel: [phone] Referring Provider: [place], [address] . [phone] [facility], [address], [place], [place], [address] , tel: [phone] [place] No Information May- 1 English Higginbotham. [address], [address] , [place]. tel: [phone] PREVENTATIVE -EST: 40-64 [facility], [address], [place], [place], [address] , tel: [phone] [facility] px (chief complaint) Body mass index (BMI) 34.0-34.9, adultAnnual physical examUlcerative colitis with complication, unspecified locationHTN, goal below 130/80AnxietyHyper lipidemia, unspecified hyperlipidemia type 1 English Higginbotham. [address], [address] , [place]. tel: [phone] Referring Provider: [place], [address] . [phone] [facility], [address], [place], [place], [address] , tel: [phone] [facility] Annual physical examScreening PSA (prostate specific antigen) 1 English Higginbotham. [place], [address] , [place]. tel: [phone] Referring Provider: [place], [address] . tel:[phone] [facility], [address], [place], [place], [address] , tel: [phone] [facility] No Information Nov- 0 English Higginbotham. [address], [address] , [place]. tel: [phone] Referring Provider: [place], [address] . tel:[phone] OFFICE EZGNP-SWI-NL TAILED [facility], [address], [place], [place], [address] , tel: [phone] [facility] 5 month (chief complaint) Body mass index (BMI) 34.0-34.9, adultUlcerative colitis with complication, unspecified locationAnxietyHTN , goal below 130/80RLS (restless legs syndrome) 0 Barbadian John. [place], [address] , . tel: [phone] Referring Provider: [place], [address] . [phone] [facility], [address], [place], [place], [address] , tel: [phone] [facility] Sensorineural hearing loss, bilateral 0 English Maloney [place], [place], [address] , [place]. tel: [phone] OFFICE QEIRC-DPG-WU PANDED [facility], [address], [place], [place], [address] , tel: [phone] [facility] 6 week f/u (chief complaint) Anxiety 0 English Maloney [address], [place], [address] , [place]. tel: [phone] Referring Provider: [place], [address] . tel:[phone] PREVENTATIVE -EST: 40-64 [facility], [address], [place], [place], [address] , tel: [phone] [facility] PX (chief complaint) Body mass index (BMI) 34.0-34.9, adultEncounter for general adult medical examination without abnormal findingsUlcerative colitis with complication, unspecified locationTestostero ne deficiencyAnxietyO SA (obstructive sleep apnea)Screening PSA (prostate specific antigen) 0 English John. [place], [address] , [place]. tel: [phone] Referring Provider: [place], [address] . tel:[phone] [facility], [address], [place], [place], [address] , [place] tel: [phone] [facility] Chronic low back pain, unspecified back pain laterality, unspecified whether sciatica presentOther chronic pain Barbadian Neftaly. [place], [address] , [place]. tel: [phone] [facility], [address], [place], [place], [address] , tel: [phone] [facility] Acute right-sided low back pain without sciatica English Higginbotham. [place], [address] , [place]. tel: [phone] OFFICE NVAXL-BQF-JL [facility], [address], [place], [place], [address] , tel: [phone] [facility] back pain . (chief complaint) Acute right-sided low back pain without sciatica Ellie Saenz. [address] [place], [place], [address] , [place]. tel: [phone] Referring Provider: [place], [address] . tel:[phone] [facility], [address], [place], [place], [address] , tel: [phone] [facility] No Information Barbadian Neftaly. [place], [address] , [place]. tel: [phone] OFFICE CWVPF-OIN-VI [facility], [address], [place], [place], [address] , tel: [phone] [facility] 6 month (chief complaint) Ulcerative colitis with complication, unspecified locationTestostero ne deficiencyAnxietyB sobia mass index (BMI) 33.0-33.9, adultChronic left shoulder painOther chronic pain 9 English HigginbothamBentley [place], [address] , [place]. tel: [phone] Referring Provider: [place], [address] . tel:[phone] OFFICE IZIXT-VNM-RP PANDED [facility], [address], [place], [place], [address] , tel: [phone] [facility] discuss meds (Celexa/Bus par) (chief complaint) Body mass index (BMI) 33.0-33.9, adultAnxiety 9 English Higginbotham. [place], [address] , [place]. tel: [phone] Referring Provider: Neftaly Hawthorne, [place], [address] . [phone] [facility], [address], [place], [place], [address] , tel: [phone] [facility] No Information English Higginbotham. [address], [place], [address] , . tel: [phone] [facility], [address], [place], [address] , [place] tel: [phone] [facility] Encounter for general adult medical examination without abnormal findingsDisturbanc e, sleepUlcerative colitis with complication, unspecified locationHTN, goal below 130/80Testosterone deficiency English Higginbotham. [place], [address] , [place]. tel: [phone] Referring Provider: [place], [address] . tel:[phone] [facility], [address], [place], [place], [address] , tel: [phone] [facility] HTN, goal below 130/80Testosterone deficiencyEncounte r for general adult medical examination without abnormal findings Barbadian Neftaly. [place], [place], [address] , [place]. tel: [phone] Referring Provider: [place], [address] . tel:[phone] [facility], [address], [place], [place], [address] , tel: [phone] [place] Body mass index (BMI) 35.0-35.9, adultShortness of breath on exertionUlcerative colitis with complication, unspecified locationTestostero ne deficiencyHTN, goal below 130/80 8 English Higginbotham. [place], [place], [address] , . tel: [phone] Referring Provider: [place], [address] . tel:[phone] [facility], [address], [place], [place], [address] , tel: [phone] [place] [facility] 8 English Higginbotham. [address] [place], [place], [address] , . tel: [phone] Referring Provider: [place], [address] . [phone] [facility], [address], [place], [place], [address] , tel: [phone] [place] Encounter for general adult medical examination without abnormal findingsHTN, goal below 130/80Hx TIA/stroke w/o residAnxietyTestos terone deficiencyInsomnia , unspecified typeUlcerative colitis with complication, unspecified locationErectile dysfunction, unspecified erectile dysfunction type 8 English Higginbotham. [place], [place], [address] , . tel: [phone] Referring Provider: [place], [address] . tel:[phone] Family History Family Member Type Diagnosis Age At Onset Father Problem (finding) Renal disease Sister Problem (finding) malignant neoplasm of l roni Mother Problem (finding) hypertension Father Problem (finding) hypertension Father Problem (finding) Diabetes mellitus Mother Problem (finding) malignant neoplasm of l roni Sister Problem (finding) Diabetes mellitus Immunizations Vaccine Date Status Comments Fluzone High-Dose Trivalent, preservative free administered Source: New Immuniza tion Record Pneumococcal conjugate PCV20 administered Source: New Immunization Record Influenza, adjuvanted, trivalent, PF administered Note: [facility] ; Source: Other Provider COVID-19, mRNA, LNP-S, PF, rivas-sucrose, 30 mcg/0.3 mL administered Note: [facility] ; Source: Other Provider Flublok, quadrivalent, preservative free, 0.5mL dosage administered Source: New Immunization Record Pfizer (Bivalent Booster) CO VID Vac, 30mcg/0.3mL, 12+ years administered Note: [facility] ; Source: Source Unspecified Influenza vaccine, quadrivalent, adjuvanted administered Note: [facility] ; Shalonda rce: Other Provider Tdap administered Source: New Imm unization Record Pneumococcal polysaccharide PPV23 administered Source: New Immuniza tion Record Fluzone Quad, preservative free, split virus, 0.5mL dosage administered Source: New Immunization Record J&J COVID/Adenovirus Vaccine [id number] viral particles/0.5mL administered Note: done by [facility] at the ; Source: Public Agency J&J COVID/Adenovirus Vaccine [id number] viral particles/0.5mL administered Note: LUCIO ACUNA ; Source: Public Agency Fluzone Quad, preservative free, split virus, 0.5mL dosage administered Source: New Immunization Record SHINGRIX (Zoster vaccine recombinant, adjuvanted) administered Note: [facility] ; Source: Source Unspecified Fluzone Quad, preservative free, split virus, 0.5mL dosage administered Note: Tyler burgos ; Source: Source Unspecified SHINGRIX (Zoster vaccine recombinant, adjuvanted) administered Source: Source Unspecified Fluzone Quad, preservative free, split virus, 0.5mL dosage refused Source: New Immunization Record Fluzone Quad , preservative free, split virus, 0.5mL dosage administered Source: Source Unspe cified Payers Payer name Insurance type Covered democrat ID Authoriza tion(s) [facility] MDCR REPLACEMENT CI [id number] [facility] MDCR REPLACEMENT CI [id number] [facility] MDCR REPLACEMENT CI [id number] [place] [id number] [facility] MDCR REPLACEMENT CI [id number] [place] MB [id number] [facility] MDCR REPLACEMENT CI [id number] [facility] OPEN ACCESS I II III CI [id number] [facility] MDCR REPLACEMENT CI [id number] [facility] OPEN ACCESS I II III CI [id number] [facility] MDCR REPLACEMENT CI [id number] [facility] OPEN ACCESS I II III CI [id number] [facility] MDCR REPLACEMENT CI [id number] Social History Type Description Quantity Date Captured Comments Alcohol Use Details Unknown Caffeine Use Details Unknown Tobacco Use Status No Information Smoking Status No Information Sex Male Chief Complaint And Reason For Visit No Information Reason For Referral Reason For Referral No Information Plan Of Treatment Date Type Action Status Goal Dietary manageme nt education, guidance, and counseling completed Goal Dietary manageme nt education, guidance, and counseling completed Goal Dietary manageme nt education, guidance, and counseling completed Goal Dietary manageme nt education, guidance, and counseling completed Goal Dietary manageme nt education, guidance, and counseling completed Goal Dietary manageme nt education, guidance, and counseling completed Goal Dietary manageme nt education, guidance, and counseling completed Goal Dietary manageme nt education, guidance, and counseling completed Goal Dietary manageme nt education, guidance, and counseling completed Goal Dietary manageme nt education, guidance, and counseling completed Goal Dietary manageme nt education, guidance, and counseling completed Goal Dietary manageme nt education, guidance, and counseling completed Goal Dietary manageme nt education, guidance, and counseling completed Goal Dietary manageme nt education, guidance, and counseling completed Goal Dietary manageme nt education, guidance, and counseling completed Goal Dietary manageme nt education, guidance, and counseling completed Referral Referred To: Mahad Joseph MD [address] [place], [address] [phone] Ordered: Referrals: Neurosurgery. Mahad Joseph MD. Evaluation/diagnostic/treatment - Level 3 ordered Referral Referred To: Jose E Pacheco [address] [facility]
[address] [place], [address] [phone] Ordered: Referrals: Neurosurgery. Jose E Pacheco. Evaluation/diagnostic/treatment - Level 3 ordered Referral Referred To: [address] [facility] [place], [address] [phone] Ordered: MRI of lumbar spine without then with contrast ordered Referral Referred To: [address] [place], [address] Ordered: MRI of lumbar spine with contrast ordered Referral Referred To: [address] [facility] [place], [address] [phone] Ordered: MRI of lumbar spine without contrast ordered Referral Ordered: EKG (ELECTROCARDIOGRAM) ordered Referral Referred To: [address] [place], [address] [phone] Ordered: MRI abdomen with and without contrast ordered Referral Referred To: [facility] Ordered: Referrals: Audiology. [facility]. Evaluation/diagnostic/treatment - Level 3 ordered Referral Referred To: Dr. Екатерина Galvez Ordered: Referrals: Pain Medicine. Dr. Екатерина Galvez. Evaluation/diagnostic/treatment - Level 3 Appointment date/timeframe: 02/24/2019 ordered Referral Referred To: [address] [place], [address] [phone] Ordered: MRI, spine, lumbar, without contrast Appointment date/timeframe: 02/05/2019 ordered Referral Referred To: [address] [place], [address] [phone] Ordered: X-RAY EXAM OF LUMBAR SPINE, A/P & LAT Appointment date/timeframe: 02/26/2019 ordered Referral Referred To: [address]
[facility] [address] [place], [address] [phone] Ordered: MRI shoulder left wo contrast Left Appointment date/timeframe: 11/12/2018 ordered Appointment Sai Taylor BOOKED Appointment Sai Taylor BOOKED Appointment Sai Taylor BOOKED Appointment Sai Taylor BOOKED History Of Present Illness Encounter Date Complaint History Of Prese nt Illness chronic problems htn-- doing wel l on medanxiety-- about the sameback pain-- going to seeanother surgeon, saw one already, still in pain, lying in bed really hurts px Chronic conditio nsanxiety-- doing well on meduc-- doing well on medhtn-- controlled on med, no symptomshld-- doing well with diet controldiet-- tries to eat okexercise-- works at [employer]immunizations-- orevnar todayscreenings--utdmood-- oksleepmemory-- fine new problems back pain with r igh sided sciatica----had pain management and now is worsehad done therapy, xrays and steroid injectionright foot is swollen Chronic conditions lujmbar degen ertaive disc diseas-- shots helped some, back brace maybe beneficialalso did PTstill having problemshas some pain down legs px Chronic conditio nscolitis-- controlled on medhtn- -controlled on medgad--controlled on meddiet-- not the bestexercise-- walkingimmunizations-- unsure about prevnarscreenings--utdmood--okmemory-- fine Chr conditions htn-- controlled on medanxiety-- doing finecolitis-- doing well px Chronic conditio nscolitis-- had recent attackelevated psa-- seeing urologyanxiety-- doing wellhtn-- controlled on med, doesnt check much at homeosa--doing well on cpapdiet-- too muchexercise-- some walkingimmunizations--utdscreenings--utdm ood-- doing alrightsleep-- excellentmemory-- fine Medicare preventive The patient has not felt depressed and has had interest and pleasure doing things recently. Cognitive status assessed on 05/03/2021. The ''Up and Go'' test took less than 30 seconds. The patient is not at risk for falls. The patient has not fallen in the last year. The fall(s) did not result in injury. Patient denies recent weight gain. Patient denies recent weight loss. Patient is a former tobacco user, alcohol user. Screening services were reviewed and updated. Chronic conditions Chronic Conditions *See Chronic Conditions HPI Medicare preventive A Health Ris k Assessment has been performed and reviewed. The patient has not felt depressed and has had interest and pleasure doing things recently. Cognitive Status: (Cognitive status has not changed) on 05/03/2021. The ''Up and Go'' test took less than 30 seconds and the patient does not need help with activities of daily living. The patient is not at risk for falls. The patient has not fallen in the last year. The fall(s) did not result in injury. Patient denies recent weight gain. Patient denies recent weight loss. Patient is a former tobacco user, alcohol user. Screening services were reviewed and updated. px chronic conditio nshtn-- controlled on medcolitis---terrible, getting colonosocpy on sundayanxiety-- not doing the bestpe-- no bleeding problemselevated psa-- seeing urologydiet-- goodexercise-- not muchno risk for drug abusept gets regular eye examscreening--utdimmunizations--utdmood- - goodmemory-- fine er follow up pe-- no sob, on blood thinnerrenal lesion-- seen on mrikidney lesion-- seen on mri chronic conditions megan- doing ok control on medshtn-- controlled on medcolitis-- controlled on medrls--doing ok at night red area got tick bite, b ite lesion seen with read area around itno feevr px chronic conditio nsanxiety-- doing sosohtn-- at goal, no symptomscolitis-- conktrolled on mesalaminehld-much higher than last timediet-- okexercise--not muchscreening-- utdimmunizations-- signed up for covidmood-- ok 5 month anxiety--- just increased med, can tell a big differenceulceratiev colitis-- on meds, off and onhtn-- bp at goal, no symptomsrls--a ctikg up more lately 6 week f/u anxiety-- taking prozac and busprine, feelingmuch better, thinks he could use just a bit of a boost PX chronic conditio nsulcerative colitis--- worse issues on mesalamineanxiety----on lexapro, did have good success with prozac in pasttestosterone defiency-- cant really tell a differencegerd-- controlledhtn-- controlled, no cp or sobosa--wears cpap with benefitrls-- better after iron defiiencydiet-- okexercise-- nonescreening-- plan for colonoscopy next week, checking psaimmunizations--utd back pain . 63 year old male who presents with back pain for 2 weeks. Pain began in the morning 2 weeks ago. He had no injury or trauma. He had no new activities preceding the pain. He does not remember if he tried to move his large dog in the bed over night. Pain is located in right lower back. Pain radiates down to right buttock. Pain does not radiate down leg. Pain is worse with standing and walking. Pain is tolerable with sitting. He has not had any imaging on his back. Denies fever, chills, abdominal pain, loss of bowel or bladder control, difficulty voiding, saddle paresthesias, numbness, tingling. He has not taken any medications for pain. 6 month anxiety-- minima slly better, on buspartestsoeterpone-- on replacementcolitis-- stable on msealamineleft shoulder pain-- worsening, had surgeries before discuss meds (Celexa/Buspar) anx iety-- celexa and buspar combo not working well, had ativan before Functional Status Date Functional Assessmen t No Information Instructions Date Instruction Additional Infor mation daily exercisessee n eurosurgerycontinue to use patches Related to Back pain of lumbar region with sciatica continue olmesartanlow salt diet Related to HTN, goal below 130/80 continue buspirone a nd fluoxetinestay active Related to Anxiety Medication management Dietary management e ducation, guidance, and counseling Related to Body mass index (BMI) 34.0-34.9, adult continue medscall if any changes Related to Ulcerative colitis with complication, unspecified location annual flu shotprevn ar todayhealthy diet and exercisefollow up in 6 months Related to Annual physical exam continue medslow salt diet Relat ed to HTN, goal below 130/80 continue healthy diet Related to Hyperlipidemia, unspecified hyperlipidemia type continue medsstay active Related to Anxiety Dietary management e ducation, guidance, and counseling Related to Body mass index (BMI) 35.0-35.9, adult Urinary Incontinence Medication management Fall Risk Prevention will get mri Related to Back pain of lumbar region with sciatica Medication management would benefit from back brace Re lated to Lumbar degenerative disc disease Medication management Dietary management e ducation, guidance, and counseling Related to Body mass index (BMI) 36.0-36.9, adult check on prevnarutd with screeninghealthy diet and exercisefollow up in 6 months Related to Annual physical exam continue medsstay active Related to Anxiety continue medsfollow up with GI R elated to Ulcerative colitis with complication, unspecified location continue medslow salt diet Relat ed to Benign hypertension Urinary Incontinence Medication management Dietary management e ducation, guidance, and counseling Related to Body mass index (BMI) 36.0-36.9, adult Fall Risk Prevention continue medsstay active Related to Anxiety continue medslow salt diet Relat ed to Benign hypertension continue to monitor Related to U lcerative colitis with complication, unspecified location Dietary management e ducation, guidance, and counseling Related to Body mass index (BMI) 34.0-34.9, adult Medication management utd with immunizatio ns and screeninghealthy diet and exercisefollow up in 6 months Related to Annual physical exam see above Related to Depen dence on other enabling machines and devices continue medslow salt diet Relat ed to Benign hypertension continue medsstay active Related to Anxiety follow up with urology Related t o Elevated PSA continue meds Related to Ulcer ative colitis with complication, unspecified location continue to wear cpap Related to DIANNA on CPAP Urinary Incontinence Counseled on weight reduction Counseled on dietary changes Fall Risk Prevention Medication management Dietary management e ducation, guidance, and counseling Related to Body mass index (BMI) 36.0-36.9, adult will check psa Related to [place] violet PSA take daily aspirin Related to Hi story of pulmonary embolus (PE) continue meds Related to Ulcer ative colitis with complication, unspecified location continue medslow salt diet Relat ed to HTN, goal below 130/80 Dietary management e ducation, guidance, and counseling Related to Body mass index (BMI) pediatric, less than 5th percentile for age Medication management tdap todayutd with s jacqui diet and exercisefollow up in 6 months Related to Annual physical exam continue medslow salt diet Relat ed to HTN, goal below 130/80 continue medsstay ac tivejoryll send to [facility] and a counselor Related to Anxiety continue eliquis Related to PE ( pulmonary thromboembolism) continue medsfollow up with GI R elated to Ulcerative colitis with complication, unspecified location Urinary Incontinence Dietary management e ducation, guidance, and counseling Related to Body mass index (BMI) 32.0-32.9, adult Fall Risk Prevention Medication management Counseled on weight reduction will get mri Related to Liver lesion will get mri Related to Renal lesion continue eliquis Related to PE ( pulmonary thromboembolism) Medication management Dietary management e ducation, guidance, and counseling Related to Body mass index (BMI) 33.0-33.9, adult will try to take ropinirole twic e a day Related to RLS (restless legs syndrome) continue medslow salt diety Rela violet to HTN, goal below 130/80 continue medswould get booster s hot Related to Ulcerative colitis with complication, unspecified location continue medsstay active Related to Anxiety Medication management Dietary management e ducation, guidance, and counseling Related to Body mass index (BMI) 34.0-34.9, adult will send nick. check cbc Related to Cellulitis, unspecified cellulitis site Medication management Dietary management e ducation, guidance, and counseling Related to Body mass index (BMI) 34.0-34.9, adult healthy dietwill recheck in 6 we eks Related to Hyperlipidemia, unspecified hyperlipidemia type annual flu shotcovid vaccine when availableutd with screeningscontinue healthy diet and exercisefollow up in 6 months Related to Annual physical exam continue mesalamine Related to U lcerative colitis with complication, unspecified location continue buspartake fluoxetine Related to Anxiety can reduce hctz to 1/2 tab daily Related to HTN, goal below 130/80 Medication management Dietary management e ducation, guidance, and counseling Related to Body mass index (BMI) 34.0-34.9, adult continue ropinirolec heck cbc and iron panel Related to RLS (restless legs syndrome) continue medsstay active Related to Anxiety continue mesalaminekeep food kirk ry Related to Ulcerative colitis with complication, unspecified location continue medslow salt dietcheck bmp Related to HTN, goal below 130/80 Dietary management e ducation, guidance, and counseling Related to Body mass index (BMI) 34.0-34.9, adult Medication management take buspirone 15mg bidcontinue prozaccontinue to stay active Related to Anxiety Medication management will switch to prozaccontinue bu spirone Related to Anxiety annual flu shotcheck psaincrease exericse Related to Encounter for general adult medical examination without abnormal findings continue to wear cpap Related to DIANNA (obstructive sleep apnea) continue mesalaminecolonoscopy n ext week Related to Ulcerative colitis with complication, unspecified location follow up with urology Related t o Testosterone deficiency Medication management Dietary management e ducation, guidance, and counseling Related to Body mass index (BMI) 34.0-34.9, adult Begin taking Medrol dosepak todayTake muscle relaxer as needed. Do not take muscle relaxer before or while driving. Do not take muscle relaxer with other medications that may make you drowsy. Complete lumbar x-ray as soon as you are able Related to Acute right-sided low back pain without sciatica will get mri Related to Chron ic left shoulder pain see above Related to Other chronic pain stable on mesalamine continue to follow up with GI Related to Ulcerative colitis with complication, unspecified location continue replacement Related to Testosterone deficiency switch from celexa t o lexaproif still having problems after two weeks, increaze busar by half a tab aa day every week until symptoms resolve or taking a total of 60mg Related to Anxiety Dietary management e ducation, guidance, and counseling Related to Body mass index (BMI) 33.0-33.9, adult Medication management increase buspar to t wice a day as we discusseduse ativan as neededcall back in two weeks if not bettermay switch from celexa to lexapro Related to Anxiety Medication management Dietary management e ducation, guidance, and counseling Related to Body mass index (BMI) 33.0-33.9, adult Assessments Type Assessment Date No Information Patient Care Teams Name Effective Dates (start - stop) Status Members No Information
--- NOTE | 2025-01-15 09:54 | PC.NURSE ---
[facility] has started construction of its new state of the art ER which will open Spring 2026. With this, we anticipate parking may be a challenge for some our surgical patients and families. Parking spaces are limited but are available for all Surgical, obstetrics, and ER patients sharing this lot. If you arrive and find you are having a hard time finding a parking space, please note that we understand the challenges, please drive around the hospital and park near Hospital Entrance 1. When you enter this entrance, you can ask a volunteer to direct or take you back to the surgical waiting area to check in. We appreciate everyone?s understanding of these expected challenges while we build for your future. Report to the Outpatient Waiting Room, entrance under the green pavilion located off [address], at time __6 AM on date __02/03/25 . Planned Procedure Time: __7:30 AM .? Time changes happen often and if your time is changed the preop area will call you the afternoon before. - You and your visitor will be asked to self-screen and do not enter if you have any COVID symptoms. Please call surgeon if you need to reschedule. - A mask is optional within the hospital at this time. Patients may have clear liquids (water, carbonated beverages, clear teas, apple juice) until 3 hours prior to surgery ( 4:30 AM) with a maximum of 20 ounces. - No food from midnight until time of surgery and no smoking, or chewing tobacco (or any form of nicotine). No chewing gum, candy or mints. Take only the following medications with a SIP of water on the morning of surgery: ____BUSPIRONE,FLUOXETINE DO NOT STOP ANY OF YOUR OTHER PRESCRIPTION MEDICATIONS PRIOR TO SURGERY EXCEPT THE FOLLOWING Hold all vitamins and supplements for 3 days per anesthesiologist. Medications to discontinue per physician NONE Date to take last dose Please no make-up, nail syriac, hairspray, perfume, deodorant, or body powder the day of surgery.? No jewelry (including any body piercings) or valuables the day of surgery, leave them at home.? Please take a shower or bath the night before, or the morning of, surgery with an antibacterial soap.? Wear comfortable, loose fitting clothing.? Children are encouraged to wear pajamas. - Jewelry must be removed prior to entering the operating room.? Rings and piercings that are not removed may be cut off. - The hospital will not accept responsibility for valuables.? - Please leave all valuables, including medications, at home the day of surgery. If you are going home after surgery, a licensed school bus driver/custodian must drive you home.? - NO public transportation without another adult if you receive anesthesia. - We recommend that an adult stay with you for 24 hours following discharge. - We also recommend that you do not drive, make important decision, drink alcoholic beverages, or take any drugs that were not prescribed by your health care provider for at least 24 hours after your discharge time. For Pediatric surgeries, we recommend two adults accompany the child home. Follow any additional instructions given to you from your surgeon. VERBAL AND WRITTEN instructions given to __PATIENT and asked if any additional questions and then verbalized understanding. Patient advised to call surgeon office or pre surgery nurse liaison [phone] if any additional questions.
[2025-01-15 10:10] VITALS: BMI 34.4
[2025-01-15 10:51] VITALS: BP 145/85; PULSE 61; RESP 18; TEMP 36.7; O2SAT 100
[2025-02-03] VITALS (8 sets, daily range): BP systolic 111–133; BP diastolic 62–78; PULSE 55–74; RESP 12–17; TEMP 36.1–36.5; O2SAT 93–99
--- NOTE | ~2025-02-03 | XR_ITS ---
XR fluoroscopy no charge Indication: Right L5-S1 lateral foraminotomy for synovial cyst TECHNIQUE: Fluoroscopy used during Right L5-S1 lateral foraminotomy for synovial cyst performed by Dr. Man Joseph MD on 02/03/2025. Fluoroscopy time of 4 seconds with 1 images captured. FINDINGS: Correlate with procedure note. IMPRESSION: Fluoroscopy used during Right L5-S1 lateral foraminotomy for synovial cyst. Reviewed, dictated and finalized at location O. [facility] [employer] IMPRESSION: Fluoroscopy used during Right L5-S1 lateral foraminotomy for synovi al cyst.
--- OUTSIDE RECORDS SUMMARY | 2025-02-03 00:24 | XMS_ITS | Encounter Summary ---
Author Organization [facility] Address [address] [place] [address] Care Team Providers Care Junior Sales Assistant Name Role Phone Neftaly Jamison MD Primary Care Provider [phone] Encounter Details Date Type Department Care Team (Late st Contact Info) Description 09/29/2022 Lab Requisition [facility] - DermPath Lab [address] [facility] [place] [phone] Sadi Irizarry MD [address] [place] [address] Social History Tobacco Use Types Packs/Day Years Used Date Smoking Tobacco: Former Alcohol Use Standard Drinks/Week Comments No 0 (1 standard drink = 0.6 oz pur e alcohol) Sex and Gender Information Value Date Recorded Sex Assigned at Not on file 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 Gender Identity Not on file Sexual Orientation Not on file documented as of this encounter Plan of Treatment Not on file documented as of this encounter Procedures Procedure Name Priority Date/Time Associated Diagnosis Comments DERMATOPATHOLOGY Routine 09/28/2022 12:0 0 AM CDT documented in this encounter Results * DERMATOPATHOLOGY (09/28/2022 12:00 AM CDT) Case Report Dermatopathology Report Case: [id number] Authorizing Provider: Sadi Irizarry MD Collected: 09/28/2022 12:00 AM Ordering Location: [facility] DermPath Lab Received: 09/29/2022 11:54 AM Pathologist: [...] CDT Clinical History SCCA in Situ. Path# [id number]. Check Margins. 1:42 PM CDT DERMATOPATHOLOGY LABORATORY Gross Description Specimen A: Received is one formalin filled container labeled with the patient's name and designated right lat. neck.The specimen consists of an ellipse measuring 57q99n8 mm and is oriented with the suture/notch [...] characteristic determined by the Dermatopathology Laboratory at [facility], directed by Dr. Briana Luis. These tests need not be, and therefore are not, approved by the [place] Food and Drug Administration. The tests are used for clinical purposes. Billing Codes Specimen Charges Stain Charges 10213 1 3 1:42 PM CDT DERMATOPATHOLOGY LABORATORY Embedded Images 3 1:42 PM CDT DERMATOPATHOLOGY LABORATORY Pathology/Cytolog y TISSUE SPECIMEN FROM SKIN / Unknown 09/28/2022 09/29/2022 11:54 AM CDT Sadi Irizarry MD LAB - PATHOLOGY/CYTOLOGY ORDER JOSSUE Final Result DERMATOPATHOLOGY LABORATORY [facility] - Department of Dermatology [facility] [address] [place] [address], [address] [phone] documented in this encounter Visit Diagnoses Not on filedocumented in this encounter Care Teams Junior Sales Assistant Relationship Specialty Start Date End Date [place] [address] PCP - General 07/20/14 documented as of this encounter
--- OUTSIDE RECORDS SUMMARY | 2025-02-03 00:24 | XMS_ITS | Encounter Summary ---
Author Organization [facility] Address [address] [facility] [place] [address] Care Team Providers Care Crude Oil Treater Name Role Phone Neftaly Jamison MD Primary Care Provider [phone] Encounter Details Date Type Department Care Team (Late st Contact Info) Description 08/03/2021 Lab Requisition [facility] Care DermPath Lab [address] [facility] [place] [phone] Sadi Irizarry MD [address] [facility] [place] [address] Social History Tobacco Use Types Packs/Day Years Used Date Smoking Tobacco: Former Alcohol Use Standard Drinks/Week Comments No 0 (1 standard drink = 0.6 oz pur e alcohol) Sex and Gender Information Value Date Recorded Sex Assigned at Not on file 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 Gender Identity Not on file Sexual Orientation Not on file documented as of this encounter Plan of Treatment Not on file documented as of this encounter Procedures Procedure Name Priority Date/Time Associated Diagnosis Comments DERMATOPATHOLOGY Routine 08/02/2021 12:0 0 AM CDT documented in this encounter Results * DERMATOPATHOLOGY (08/02/2021 12:00 AM CDT) Case Report Dermatopathology Report Case: [id number] Authorizing Provider: Sadi Irizarry MD Collected: 08/02/2021 12:00 AM Ordering Location: [facility] DermPath Lab Received: 08/03/2021 06:10 AM Pathologist: [...] CDT Clinical History A: BCCA. Path # [id number]. B: SCCA. Path # [id number]. 4:35 PM CDT DERMATOPATHOLOGY LABORATORY Gross Description Specimen A: Received is one formalin filled container labeled with the patient's name and designated left lower bicep. The specimen consists of a shave biopsy measuring 3z4z0cr. Jar 0. Specimen B: Received is one formalin filled container labeled with the patient's name and designated left upper forearm. The specimen consists of a shave biopsy measuring 80g4i6hk & 2e0h0ia. Jar 0. 4:35 PM T DERMATOPATHOLOGY LABORATORY [...] characteristic determined by the Dermatopathology Laboratory at [facility], directed by Dr. Briana Luis. These tests need not be, and therefore are not, approved by the [place] Food and Drug Administration. The tests are used for clinical purposes. Billing Codes Specimen Charges Stain Charges 45356 40939 1 1 2 4:35 PM CDT DERMATOPATHOLOGY LABORATORY Embedded Images 2 4:35 PM CDT DERMATOPATHOLOGY LABORATORY Pathology/Cytology TISSUE SPECIMEN FROM SKIN / Unknown 08/02/2021 08/03/2021 6:10 AM CDT Miscellaneous samples (specimen) TISSUE SPECIMEN FROM SKIN / Unknown 08/02/2021 08/03/2021 6:10 AM CDT us Sadi Irizarry MD LAB - PATHOLOGY/CYTOLOGY ORDER JOSSUE Final Result Performing Organization Address City/State/[facility] Co de Phone Number DERMATOPATHOLOGY LABORATORY [facility] - Department of Dermatology [facility] Medicine [address] [place] [address], [address] [phone] documented in this encounter Visit Diagnoses Not on filedocumented in this encounter Care Teams Crude Oil Treater Relationship Specialty Start Date End Date Nfetaly Jamison MD [address] [place] [address] PCP - General 07/20/14 documented as of this encounter
--- OUTSIDE RECORDS SUMMARY | 2025-02-03 00:24 | XMS_ITS | Clinical Summary ---
Author Organization [facility] Address [facility] [place] [address] Care Team Providers Care Naphtha Washing System Operator Name Role Phone Neftaly Hawthorne MD Primary Care Provider Social History Tobacco Use Types Packs/Day Years Used Date Smoking Tobacco: Never Assessed Sex and Gender Information Value Date Recorded Sex Assigned at Not on file Legal Sex Male 6:07 PM CDT Gender Identity Not on file Sexual Orientation Not on file Last Filed Vital Signs Vital Sign Reading Time Taken Comments Blood Pressure 115/75 01/26/2017 7:07 AM STUDIO CAMERA OPERATOR Pulse 81 01/26/2017 7:07 AM STUDIO CAMERA OPERATOR Temperature - - Respiratory Rate - - Oxygen Saturation - - Inhaled Oxygen Concentration - - Weight 100.7 kg (222 lb) 01/26/2017 7:07 AM STUDIO CAMERA OPERATOR Height 175.3 cm (5' 9) 06/29/2016 7:05 [...] patient's age to complete this topic Insurance [employer] OPEN ACCESS [facility] H AND R FUNDS Care Teams Naphtha Washing System Operator Relationship Specialty Start Date End Date Neftaly Hawthorne MD [address] [phone] PCP - General INTERNAL MEDICINE 06/06/19
--- OUTSIDE RECORDS SUMMARY | 2025-02-03 00:24 | XMS_ITS | Encounter Summary ---
Author Organization [facility] Facility Care Team Providers Care Hot Header Operator Name Role Phone Bessie Jamison MD Primary Care Provider [phone] Bessie Jamison MD Primary Care Provider [phone] Bessie Hawthorne MD Primary Care Provider [phone] Loagn Contreras MD, Ariel Unavailable + [phone] Antonino FUENTES MD, Sebastián Grant Unavailable [phone] Narciso Hauser MD Unavailable [phone] Encounter Details Date Type Department Care Team (Latest Contact Info) Description 07/18/2016 Orders Only MMG CLINCONV ProviderMinh MD [address] [place] [address] Social History Tobacco Use Types Packs/Day Years Used Date Smoking Tobacco: Never Assessed Sex and Gender Information Value Date Recorded Sex Assigned at Not on file Legal Sex Male 2:36 AM POISING INSPECTOR Gender Identity Male 09/16/2019 11:58 AM CDT [...] on filedocumented in this encounter Care Teams Hot Header Operator Relationship Specialty Start Date End Date Bessie Jamison MD PCP - General 07/08/16 09/16/17 Bessie Jamison MD PCP - General 09/17/17 09/27/17 Bessie Hawthorne MD PCP - General Internal Medicine 10/10/17 Ariel Ford Jr., MD Medical Oncologist/Drafter Engineering Medical Oncology 01/23/19 Sebastián Muñiz II, MD Referring Physician Otolaryngology 04/01/19 Narciso Hauser MD [address] [place] [address] Consulting Physician Pulmonary Disease 07/30/19 documented as of this encounter
--- OUTSIDE RECORDS SUMMARY | 2025-02-03 00:24 | XMS_ITS | Encounter Summary ---
Author Organization [facility] Facility Care Team Providers Care Technology Resource Teacher Name Role Phone Bessie Jamison MD Primary Care Provider [phone] Bessie Jamison MD Primary Care Provider [phone] Bessie Hawthorne MD Primary Care Provider [phone] Logan Contreras MD, Ariel Unavailable + [phone] Antonino FUENTES MD, Sebastián Grant Unavailable [phone] Narciso Hauser MD Unavailable [phone] Encounter Details Date Type Department Care Team (Latest Contact Info) Description 01/13/2016 Orders Only [facility] CLINCON[facility] ProviderMinh MD [address] [place] [address] Social History Tobacco Use Types Packs/Day Years Used Date Smoking Tobacco: Never Assessed Sex and Gender Information Value Date Recorded Sex Assigned at Not on file Legal Sex Male 2:36 AM COURTROOM REPORTER Gender Identity Male 09/16/2019 11:58 AM CDT Sexual Orientation Straight 09/16/2019 11 :58 AM CDT documented as of this encounter Functional Status documented as of this encounter Plan of Treatment Not on file documented as of this encounter Procedures Procedure Name Priority Date/Time Associated Diagnosis Comments SCAN - LABS 01/24/2016 12:00 AM COURTROOM REPORTER documented in this encounter Results * SCAN - LABS (01/24/2016 12:00 AM COURTROOM REPORTER) Narrative 01/24/2016 12:00 AM COURTROOM REPORTER Ordered by an unspecified provider. us Historical Provider Final Res ult documented in this encounter Visit Diagnoses Not on filedocumented in this encounter Care Teams Technology Resource Teacher Relationship Specialty Start Date End Date Bessie Jamison MD PCP - General 07/08/16 09/16/17 Bessie Jamison MD PCP - General 09/17/17 09/27/17 Bessie Hawthorne MD PCP - General Internal Medicine 10/10/17 Ariel Ford Jr., MD Medical Oncologist/Cardiopulmonary Technician Medical Oncology 01/23/19 Sebastián Muñiz II, MD Referring Physician Otolaryngology 04/01/19 Narciso Hauser MD [address] [place] [address] Consulting Physician Pulmonary Disease 07/30/19 documented as of this encounter
--- OUTSIDE RECORDS SUMMARY | 2025-02-03 00:24 | XMS_ITS | Encounter Summary ---
Author Organization [facility] Address [address] [place] [address] Care Team Providers Care Laserist Name Role Phone Neftaly Jamison MD Primary Care Provider [phone] Encounter Details Date Type Department Care Team (Late st Contact Info) Description 08/08/2019 Lab Requisition [facility] DermPath Lab [address] [facility] [place] [id number] Sadi Irizarry MD [address] [facility] [place] [address] Social History Tobacco Use Types Packs/Day Years Used Date Smoking Tobacco: Former Alcohol Use Standard Drinks/Week Comments No 0 (1 standard drink = 0.6 oz pur e alcohol) Sex and Gender Information Value Date Recorded Sex Assigned at Not on file 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 Gender Identity Not on file Sexual Orientation Not on file documented as of this encounter Plan of Treatment Not on file documented as of this encounter Procedures Procedure Name Priority Date/Time Associated Diagnosis Comments DERMATOPATHOLOGY Routine 08/07/2019 12:0 0 AM CDT documented in this encounter Results * DERMATOPATHOLOGY (08/07/2019 12:00 AM CDT) Case Report Dermatopathology Report Case: [id number] Authorizing Provider: Sadi Irizarry MD Collected: 08/07/2019 12:00 AM Ordering Location: [facility] DermPath Lab Received: 08/08/2019 02:34 PM Pathologist: Perla Vargas MD Specimen: Skin, right upper FH 0 3:00 PM CDT DERMATOPATHOLOGY LABORATORY Final Diagnosis Specimen A. SKIN, right upper FH: ACTINIC KERATOSIS (L57.0) 0 3:00 PM CDT DERMATOPATHOLOGY LABORATORY at 1500 CDT Clinical History SCCA vs AK. Path # [id number]. 0 3:00 PM CDT DERMATOPATHOLOGY LABORATORY Gross Description Specimen A: Received is one formalin filled container labeled with the patient's name and designated right upper FH. The specimen consists of a shave biopsy measuring [id number]. Jar 0. 0 3:00 PM CDT DERMATOPATHOLOGY [...] characteristic determined by the Dermatopathology Laboratory at [facility], directed by Dr. Briana Luis. These tests need not be, and therefore are not, approved by the [place] Food and Drug Administration. The tests are used for clinical purposes. Billing Codes Specimen Charges Stain Charges 89454 1 0 3:00 PM CDT DERMATOPATHOLOGY LABORATORY Embedded Images 0 3:00 PM CDT DERMATOPATHOLOGY LABORATORY Pathology/Cytolog y TISSUE SPECIMEN FROM SKIN / Unknown 08/07/2019 08/08/2019 2:34 PM CDT us Sadi Irizarry MD LAB - PATHOLOGY/CYTOLOGY ORDER JOSSUE Final Result DERMATOPATHOLOGY LABORATORY [facility] - Department of Dermatology Motor Coach Operator [place]/[address] [phone] documented in this encounter Visit Diagnoses Not on filedocumented in this encounter Care Teams Laserist Relationship Specialty Start Date End Date Neftaly Jamsion MD [address] [place] [address] PCP - General 07/20/14 documented as of this encounter
--- OUTSIDE RECORDS SUMMARY | 2025-02-03 00:24 | XMS_ITS | Encounter Summary ---
Author Organization [facility] Address [address] [place] [address] Care Team Providers Care Senior Information Security Engineer Name Role Phone Neftaly Jamison MD Primary Care Provider [phone] Encounter Details Date Type Department Care Team (Late st Contact Info) Description 09/23/[address] 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 DermPath Lab Received: 09/23/2020 06:02 AM Pathologist: Marisela Cardona MD Specimen: Skin, left clavicle 4:48 PM CDT DERMATOPATHOLOGY LABORATORY Final Diagnosis Specimen A. 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 Path# [id number]. Check margins. 4:48 PM CDT DERMATOPATHOLOGY LABORATORY Gross Description Specimen A: Received is one formalin filled container labeled with the patient's name and designated left clavicle. The specimen consists of a non-oriented ellipse of skin measuring [id number]. The epidermal surface consists of centrally located [...] characteristic determined by the Dermatopathology Laboratory at [facility], directed by Dr. Briana Luis. These tests need not be, and therefore are not, approved by the [place] Food and Drug Administration. The tests are used for clinical purposes. Billing Codes Specimen Charges Stain Charges 79355 1 4:48 PM CDT DERMATOPATHOLOGY LABORATORY Embedded Images 4:48 PM CDT DERMATOPATHOLOGY LABORATORY Pathology/Cytolo gy TISSUE SPECIMEN FROM SKIN / Unknown 09/22/2020 3:33 AM CDT 09/23/2020 6:02 AM CDT us Sadi Irizarry MD LAB - PATHOLOGY/CYTOLOGY ORDER JOSSUE Final Result DERMATOPATHOLOGY LABORATORY [facility] - Department of Dermatology [facility] Specialized Medicine [address] [place] [address], [address] [phone] documented in this encounter Visit Diagnoses Not on filedocumented in this encounter Care Teams Senior Information Security Engineer Relationship Specialty Start Date End Date Neftaly Jamison MD [address] [place] [address] PCP - General 07/20/14 documented as of this encounter
--- OUTSIDE RECORDS SUMMARY | 2025-02-03 00:24 | XMS_ITS | Encounter Summary ---
Author Organization [facility] Address [address] [place] [place] [address] Care Team Providers Care Beehive Kiln Charcoal Burner Name Role Phone Neftaly Jamison MD Primary Care Provider [phone] Encounter Details Date Type Department Care Team (Late st Contact Info) Description 07/05/2020 Lab Requisition [facility] DermPath Lab [address] [facility] [place] [phone] Sadi Irizarry MD [address] [facility] [place] [address] Social History Tobacco Use Types Packs/Day Years Used Date Smoking Tobacco: Former Alcohol Use Standard Drinks/Week Comments No 0 (1 standard drink = 0.6 oz pur e alcohol) Sex and Gender Information Value Date Recorded Sex Assigned at Not on file 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 Gender Identity Not on file Sexual Orientation Not on file documented as of this encounter Plan of Treatment Not on file documented as of this encounter Procedures Procedure Name Priority Date/Time Associated Diagnosis Comments DERMATOPATHOLOGY Routine 07/01/2020 3:33 AM CDT documented in this encounter Results * DERMATOPATHOLOGY (07/01/2020 3:33 AM CDT) Case Report Dermatopathology Report Case: [id number] Authorizing Provider: Sadi Irizarry MD Collected: 07/01/2020 03:33 AM Ordering Location: [facility] Derm[facility] Lab Received: 07/05/2020 05:53 AM Pathologist: [...] History A: AK vs BCCA vs SCC. Path#[id number] B: AK vs BCCA vs SCCA. Path#[id number] 4:07 PM CDT DERMATOPATHOLOGY LABORATORY Gross Description [...] characteristic determined by the Dermatopathology Laboratory at [facility], directed by Dr. Briana Luis. These tests need not be, and therefore are not, approved by the [place] Food and Drug Administration. The tests are used for clinical purposes. Billing Codes Specimen Charges Stain Charges 53477 83655 1 1 04/27/202 1 4:07 PM CDT DERMATOPATHOLOGY LABORATORY Embedded Images 1 4:07 PM CDT DERMATOPATHOLOGY LABORATORY Pathology/Cytology TISSUE SPECIMEN FROM SKIN / Unknown 07/01/2020 3:33 AM CDT 07/05/2020 5:53 AM CDT Miscellaneous samples (specimen) TISSUE SPECIMEN FROM SKIN / Unknown 07/01/2020 3:33 AM CDT 07/05/2020 5:53 AM CDT us Sadi Irizarry MD LAB - PATHOLOGY/CYTOLOGY ORDER JOSSUE Final Result DERMATOPATHOLOGY LABORATORY [facility] - Department of Dermatology [facility] Medicine [address] [place] [address], [address] [phone] documented in this encounter Visit Diagnoses Not on filedocumented in this encounter Care Teams Beehive Kiln Charcoal Burner Relationship Specialty Start Date End Date Neftaly [place] [address] PCP - General 07/20/14 documented as of this encounter
--- OUTSIDE RECORDS SUMMARY | 2025-02-03 00:24 | XMS_ITS | Encounter Summary ---
Author Organization [facility] Address [address] [facility] [place] [address] Care Team Providers Care County Commissioner Name Role Phone Neftaly Jamison MD Primary Care Provider [phone] Encounter Details Date Type Department Care Team (Late st Contact Info) Description 07/25/2022 Lab Requisition [facility] - DermPath Lab [address] [facility] [place] [phone] Sadi Irizarry MD [address] [facility] [place] [address] Social History Tobacco Use Types Packs/Day Years Used Date Smoking Tobacco: Former Alcohol Use Standard Drinks/Week Comments No 0 (1 standard drink = 0.6 oz pur e alcohol) Sex and Gender Information Value Date Recorded Sex Assigned at Not on file 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 Gender Identity Not on file Sexual Orientation Not on file documented as of this encounter Plan of Treatment Not on file documented as of this encounter Procedures Procedure Name Priority Date/Time Associated Diagnosis Comments DERMATOPATHOLOGY Routine 07/24/2022 12:0 0 AM CDT documented in this encounter Results * DERMATOPATHOLOGY (07/24/2022 12:00 AM CDT) Case Report Dermatopathology Report Case: [id number] Authorizing Provider: Sadi Irizarry MD Collected: 07/24/2022 12:00 AM Ordering Location: [facility] DermPath Lab Received: 07/25/2022 07:55 AM Pathologist: Azul Mata MD Specimen: Skin, right lat neck 11:36 AM CDT DERMATOPATHOLOGY LABORATORY Final Diagnosis Specimen A. SKIN, right lat neck: SQUAMOUS CELL CARCINOMA IN SITU, PRESENT AT THE BASE OF THE SPECIMEN (D04.4) (see microscopic description and comment) 11:36 AM CDT DERMATOPATHOLOGY LABORATORY at 1136 CDT Clinical History BCCA vs. SCCA vs. AK Path: [id number] 11:36 AM CDT DERMATOPATHOLOGY LABORATORY Gross Description [...] characteristic determined by the Dermatopathology Laboratory at [facility], directed by Dr. Briana Luis. These tests need not be, and therefore are not, approved by the [place] Food and Drug Administration. The tests are used for clinical purposes. Billing Codes Specimen Charges Stain Charges 16876 1 11:36 AM CDT DERMATOPATHOLOGY LABORATORY Embedded Images 11:36 AM CDT DERMATOPATHOLOGY LABORATORY Pathology/Cytolog y TISSUE SPECIMEN FROM SKIN / Unknown 07/24/2022 07/25/2022 7:55 AM CDT us Sadi Irizarry MD LAB - PATHOLOGY/CYTOLOGY ORDER JOSSUE Final Result DERMATOPATHOLOGY LABORATORY [facility] - Department of Dermatology [facility] Medicine [address] [place] [address], [address]rd Floor [address] [phone] documented in this encounter Visit Diagnoses Not on filedocumented in this encounter Care Teams County Commissioner Relationship Specialty Start Date End Date Neftaly Jamison MD [address] [place] [address] PCP - General 07/20/14 documented as of this encounter
--- OUTSIDE RECORDS SUMMARY | 2025-02-03 00:24 | XMS_ITS | Encounter Summary ---
Author Organization [facility] Address [address] [place] [address] Care Team Providers Care Factory Clerk Name Role Phone Doron Gonzalez DO Primary Care Provider [phone] Neftaly Hawthorne MD Primary Care Provider [phone] Encounter Details Date Type Department Care Team (Late st Contact Info) Description 07/24/2017 Community Orders [facility] EPICCARE LINK Bashir Jaramillo MD [facility] [address] [address] Social History Tobacco Use Types Packs/Day Years [...] on filedocumented in this encounter Care Teams Factory Clerk Relationship Specialty Start Date End Date Doron Gonzalez DO PCP - General 08/02/16 06/05/19 Neftaly Hawthorne MD [address] [place] [address] PCP - General INTERNAL MEDICINE 06/06/19 documented as of this encounter
--- OUTSIDE RECORDS SUMMARY | 2025-02-03 00:24 | XMS_ITS | Clinical Summary ---
Author Organization [facility] Address [address] [facility] [place] [address] Care Team Providers Care Big Data Analytics Lead Name Role Phone Neftaly Jamison MD Primary Care Provider [phone] Source Comments [facility] Affiliates and Associated Physician Practices is amultiple site organization consisting of ambulatory clinics and hospital sitesin [place], [place], [place] and [place]. This disclosure is being madepursuant to the Care Everywhere program and may not contain all information available regarding this patient. 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
--- OUTSIDE RECORDS SUMMARY | 2025-02-03 00:24 | XMS_ITS | Encounter Summary ---
Author Organization [facility] Address [address] [facility] [place] [address] Care Team Providers Care Senior Net Programmer Name Role Phone Neftaly Jamison MD Primary Care Provider [phone] Encounter Details Date Type Department Care Team (Late st Contact Info) Description 10/07/2020 Lab Requisition [facility] Care DermPath Lab [address] [facility] [place] [phone] Sadi Irizarry MD [address] [facility] [place] [address] Social History Tobacco Use Types Packs/Day Years Used Date Smoking Tobacco: Former Alcohol Use Standard Drinks/Week Comments No 0 (1 standard drink = 0.6 oz pur e alcohol) Sex and Gender Information Value Date Recorded Sex Assigned at Not on file 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 Gender Identity Not on file Sexual Orientation Not on file documented as of this encounter Plan of Treatment Not on file documented as of this encounter Procedures Procedure Name Priority Date/Time Associated Diagnosis Comments DERMATOPATHOLOGY Routine 10/06/2020 12:0 0 AM CDT documented in this encounter Results * DERMATOPATHOLOGY (10/06/2020 12:00 AM CDT) Case Report Dermatopathology Report Case: [id number] Authorizing Provider: Sadi Irizarry MD Collected: 10/06/2020 12:00 AM Ordering Location: [facility] DermPath Lab Received: 10/07/2020 08:30 AM Pathologist: Azul Mata MD Specimen: Skin, right arm 4:11 PM T DERMATOPATHOLOGY LABORATORY Final Diagnosis Specimen A. 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 Path#[id number]. Check margins 4:11 PM CDT DERMATOPATHOLOGY LABORATORY Gross Description Specimen A: Received is one formalin filled container labeled with the patient's name and designated right arm. The specimen consists of a non-oriented ellipse of skin measuring 20x65f5 mm. The epidermal surface is unremarkable. The [...] characteristic determined by the Dermatopathology Laboratory at [facility], directed by Dr. Briana Luis. These tests need not be, and therefore are not, approved by the [place] Food and Drug Administration. The tests are used for clinical purposes. Billing Codes Specimen Charges Stain Charges 01113 1 4:11 PM CDT DERMATOPATHOLOGY LABORATORY Embedded Images 4:11 PM CDT DERMATOPATHOLOGY LABORATORY Pathology/Cytolog y TISSUE SPECIMEN FROM SKIN / Unknown 10/06/2020 10/07/2020 8:30 AM CDT us Sadi Irizarry MD LAB - PATHOLOGY/CYTOLOGY ORDER JOSSUE Final Result DERMATOPATHOLOGY LABORATORY [facility] - Department of Dermatology [address], [address] [phone] documented in this encounter Visit Diagnoses Not on filedocumented in this encounter Care Teams Senior Net Programmer Relationship Specialty Start Date End Date Neftaly Jamison MD [address] [place] [address] PCP - General 07/20/14 documented as of this encounter
--- OUTSIDE RECORDS SUMMARY | 2025-02-03 00:24 | XMS_ITS | Encounter Summary ---
Author Organization [facility] Address [address] [facility] [place] [address] Care Team Providers Care Convenience Store Manager Name Role Phone Neftaly Jamison MD Primary Care Provider [phone] Encounter Details Date Type Department Care Team (Late st Contact Info) Description 09/23/2021 Lab Requisition [facility] Care DermPath Lab [address] [place] [phone] Sadi Irizarry MD [address] [facility] [place] [address] Social History Tobacco Use Types Packs/Day Years Used Date Smoking Tobacco: Former Alcohol Use Standard Drinks/Week Comments No 0 (1 standard drink = 0.6 oz pur e alcohol) Sex and Gender Information Value Date Recorded Sex Assigned at Not on file 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 Gender Identity Not on file Sexual Orientation Not on file documented as of this encounter Plan of Treatment Not on file documented as of this encounter Procedures Procedure Name Priority Date/Time Associated Diagnosis Comments DERMATOPATHOLOGY Routine 09/21/2021 12:0 0 AM CDT documented in this encounter Results * DERMATOPATHOLOGY (09/21/2021 12:00 AM CDT) Case Report Dermatopathology Report Case: [id number] Authorizing Provider: Sadi Irizarry MD Collected: 09/21/2021 12:00 AM Ordering Location: [facility] DermPath Lab Received: 09/23/2021 07:05 AM Pathologist: Perla Vargas MD Specimen: Skin, left upper FA 12:51 PM CDT DERMATOPATHOLOGY LABORATORY Final Diagnosis Specimen A. SKIN, left upper FA: DERMAL SCAR RESIDUAL SQUAMOUS CELL CARCINOMA NOT IDENTIFIED (L90.5) TATTOO (L81.8) 2 12:51 PM CDT DERMATOPATHOLOGY LABORATORY at 1251 CDT Clinical History SCCA in situ. Path # [id number]. Check margins. 12:51 PM CDT DERMATOPATHOLOGY LABORATORY Gross Description Specimen A: Received is one formalin filled container labeled with the patient's name and designated left upper FA. The specimen consists of a non-oriented ellipse of skin measuring [id number]. The epidermal surface is unremarkable. The margin [...] determined by the [facility]atopathology Laboratory at [facility], directed by Dr. Briana Luis. These tests need not be, and therefore are not, approved by the [place] Food and Drug Administration. The tests are used for clinical purposes. Billing Codes Specimen Charges Stain Charges 25505 1 2 12:51 PM CDT DERMATOPATHOLOGY LABORATORY Embedded Images 12:51 PM CDT DERMATOPATHOLOGY LABORATORY Pathology/Cytolog y TISSUE SPECIMEN FROM SKIN / Unknown 09/21/2021 09/23/2021 7:05 AM CDT us Sadi Irizarry MD LAB - PATHOLOGY/CYTOLOGY ORDER JOSSUE Final Result DERMATOPATHOLOGY LABORATORY [facility] - Department of Dermatology [address], [address] [phone] documented in this encounter Visit Diagnoses Not on filedocumented in this encounter Care Teams Convenience Store Manager Relationship Specialty Start Date End Date Neftaly Jamison MD [address] [place] [address] PCP - General 07/20/14 documented as of this encounter
--- OUTSIDE RECORDS SUMMARY | 2025-02-03 00:24 | XMS_ITS | Encounter Summary ---
Author Organization [facility] Address [address] [facility] [place] [address] Care Team Providers Care Director Oncology Name Role Phone Neftaly Jamison MD Primary Care Provider [phone] Encounter Details Date Type Department Care Team (Late st Contact Info) Description 08/13/2020 Lab Requisition [facility] DermPath Lab [address] [facility] [place] [id number] Sadi Irizarry MD [address] [facility] [address] [place] [address] Social History Tobacco Use Types Packs/Day Years Used Date Smoking Tobacco: Former Alcohol Use Standard Drinks/Week Comments No 0 (1 standard drink = 0.6 oz pur e alcohol) Sex and Gender Information Value Date Recorded Sex Assigned at Not on file 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 Gender Identity Not on file Sexual Orientation Not on file documented as of this encounter Plan of Treatment Not on file documented as of this encounter Procedures Procedure Name Priority Date/Time Associated Diagnosis Comments DERMATOPATHOLOGY Routine 08/12/2020 3:33 AM CDT documented in this encounter Results * DERMATOPATHOLOGY (08/12/2020 3:33 AM CDT) Case Report Dermatopathology Report Case: [id number] Authorizing Provider: Sadi Irizarry MD Collected: 08/12/2020 03:33 AM Ordering Location: [facility] DermPath Lab Received: 08/13/2020 06:09 AM Pathologist: Perla Vargas MD Specimen: Skin, right arm 3:06 PM CDT DERMATOPATHOLOGY LABORATORY Final Diagnosis Specimen A. SKIN, right arm: SQUAMOUS CELL CARCINOMA, WELL DIFFERENTIATED (C44.622) 3:06 PM CDT DERMATOPATHOLOGY LABORATORY at 1505 CDT Clinical History SCCA. Path#[id number] 3:06 PM CDT DERMATOPATHOLOGY LABORATORY Gross Description [...] characteristic determined by the Dermatopathology Laboratory at [facility], directed by Dr. Briana Luis. These tests need not be, and therefore are not, approved by the [place] Food and Drug Administration. The tests are used for clinical purposes. Billing Codes Specimen Charges Stain Charges 16483 1 3:06 PM CDT DERMATOPATHOLOGY LABORATORY Embedded Images 3:06 PM CDT DERMATOPATHOLOGY LABORATORY Pathology/Cytolo gy TISSUE SPECIMEN FROM SKIN / Unknown 08/12/2020 3:33 AM CDT 08/13/2020 6:09 AM CDT us Sdai Irizarry MD LAB - PATHOLOGY/CYTOLOGY ORDER JOSSUE Final Result DERMATOPATHOLOGY LABORATORY [facility] - Department of Dermatology [address], [address] [phone] documented in this encounter Visit Diagnoses Not on filedocumented in this encounter Care Teams Director Oncology Relationship Specialty Start Date End Date Neftaly Jamison MD [address] [place] [address] PCP - General 07/20/14 documented as of this encounter
--- OUTSIDE RECORDS SUMMARY | 2025-02-03 00:24 | XMS_ITS | Clinical Summary ---
Author Organization [facility] Address [address] [place] [address] Care Team Providers Care Skilled Nursing Facilities Professional Name Role Phone Neftaly Hawthorne MD Primary Care Provider [phone] Logan Contreras MD, Ariel Unavailable [phone] Antonino FUENTES MD, Sebastián Grant Unavailable [phone] Narciso Hauser MD Unavailable [phone] Allergies Active Allergy Reactions Criticality Noted Date [...] disorder) Assessment & Plan (05/13/2024 2:39 PM ACID SUPERVISOR): Under control with Requip 3 mg night [...] disorder. Assessment & Plan (02/22/2021 12:09 PM ACID SUPERVISOR): Patient continue to use Requip 1 mg [...] appointment. Assessment & Plan (02/22/2021 12:09 PM ACID SUPERVISOR): Patient continue with his Eliquis prescribed by [...] as IBD Therapy. We regularly update our [email or web address] website and social media feeds to [...] COVID-19 to the SECURE-IBD registry at COVIDIBD.org. https://www.crohnscolitisfoundation.org/coronavirus/nwhi-iix-yjqbjodo-should-kno w https://www.cdc.gov/coronavirus/2019-nCoV/index.html https://www.ioibd.org/nkuss-htmwpr-km-bsemf76-dtx-elowgevy-rkwf-zffzat-njxuhkf-h nd-ul cerative-colitis/ Nausea 10/06/2019 Obstructive sleep apnea 04/02/2019 Assessment & Plan (05/13/2024 2:39 PM ACID SUPERVISOR): Due to ongoing symptoms, the patient will [...] symptoms of DIANNA. His DME supplier is [employer]. He will follow-up with me in 1 year. Assessment & Plan (12/29/2021 10:35 AM CDT): Continues CPAP therapy at 8 cm water pressure. Denied need for supplies. DME [employer] Assessment & Plan (06/23/2021 11:44 AM CDT): The patient will continue with CPAP therapy at 8 cm water pressure. Patient denied need for supplies. DME [employer] Assessment & Plan (05/26/2021 12:50 PM CDT): The patient will continue with CPAP therapy at 8 cm water pressure. Patient denied need for supplies. DME [employer] Assessment & Plan (02/22/2021 12:09 PM ACID SUPERVISOR): Patient continues to wear his CPAP at 8 cm water pressure while sleeping. His DME is [employer]. Iron deficiency anemia 01/22/2019 Assessment & Plan (01/31/2019 5:34 PM ACID SUPERVISOR): FOB x 3 - to rule out [...] antibiotics. Assessment & Plan (01/31/2019 5:37 PM ACID SUPERVISOR): Unlikely to be GI related as he [...] continue. Assessment & Plan (01/28/2018 9:38 AM ACID SUPERVISOR): Trial of PPI. Colon adenoma 01/28/2018 Overview (01/28/2018): 4 mm polyp on colonoscopy in 2018. Likely sporadic. Assessment & Plan (01/28/2018 9:40 AM ACID SUPERVISOR): Repeat colonoscopy in 1-2 years. Polycythemia, secondary [...] year follow up with one of our PARTS CONSULTANT Assessment & Plan (10/06/2019 3:44 PM CDT): [...] We will refer him to our clinical paste up worker for nutritional optimization. Assessment & Plan (02/02/2019 2:26 PM ACID SUPERVISOR): While the patient attributes this pain to [...] change Assessment & Plan (01/28/2018 9:37 AM ACID SUPERVISOR): In clinical, endoscopy and histologic remission. conintue refugioa. Needs colonoscopy in summer 2019. Temporary cerebral vascular dysfunction 03/22/19 11 Resolved Problems Problem Noted Date Diagnosed Date Resolved Date RLS (restless legs syndrome) 05/26/2021 05/26/2021 Ulcerative colitis with complication 05/26/2021 07/11/2021 Primary insomnia 02/22/2021 05/26/2021 Ulcerative pancolitis ([facility]) 03/19/2019 07/11/2021 Overview (03/19/2019): Added automatically from request for surgery [id number] Immunizations Immunization Administration Dates Next Due Influenza, Quadrivalent, Melissa l Culture-based MDCK, Antibiotic Free, Intramuscular 05/21/2018 Influenza, Quadrivalent, Split, Intramuscular Pneumococcal Conjugate PCV 13 01/15/2017 ZOSTER Recombinant 10/31/2018,06/12/2018 Surgical History Surgery Date Site/Laterality Comments CO LITHOTRIPSY XTRCORP SHOCK WAVE Renal Lithotripsy - (Added by TW Conv) CO APPENDECTOMY ROTATOR CUFF REPAIR KNEE SURGERY Knee [...] Years Used Date Smoking Tobacco: Former Cigarettes 2 30 1 977 - 1991 Smokeless Tobacco: Never Tobacco Cessation:Counseling Given: [...] on file Legal Sex Male 2:36 AM ACID SUPERVISOR Gender Identity Male 09/16/2019 11:58 AM CDT Sexual Orientation Straight 09/16/2019 11 :58 AM CDT Last Filed Vital Signs Vital Sign Reading Time Taken Comments Blood Pressure 143/76 10/22/2024 9:52 AM CDT Pulse 66 10/22/2024 9:52 AM CDT Temperature 36.2 C (97.2 F) 05/13/2024 2:15 PM ACID SUPERVISOR Respiratory Rate 18 07/09/2024 9:51 AM CDT [...] Assessment 07/10/2024 07/11/2023 Influenza Vaccine (#1) 2024 4, 10/30/2018, 05/21/2018 Prostate Cancer Screening-PSA 04/11/2026, 04/10/2023, [...] Comments PSA DIAGNOSTIC Routine 04/11/2024 11:10 AM ACID SUPERVISOR Benign localized prostatic hyperplasia with lower urinary tract symptoms (LUTS) COLONOSCOPY 07/11/2023 7:[address] ABDOMEN PELVIS W CONTRAST Schedule Routine, Read Routine (OP Routine) 02/17/2021 1:31 PM ACID SUPERVISOR Ulcerative pancolitis (HCC) Left lower quadrant pain Diarrhea, unspecified type Diverticulosis from Last 3 Months or Most Recently Relevant to Health Maintenance Results * PSA diagnostic (04/11/2024 11:10 AM ACID SUPERVISOR) PSA-Total 0.80 <=5.40 ng/mL Comment: Interpretive Data [...] revised 21. Blood 04/11/2024 11:1 0 AM ACID SUPERVISOR 04/11/2024 11:30 AM ACID SUPERVISOR us Luis Coreas PARTS CONSULTANT LAB BLOOD ORDERABLES Final Re sult [facility] [address] [facility] Department [place] [address] * Colonoscopy (07/11/2023 7:15 AM CDT) Anatomical Region Laterality Modality Other Narrative Procedure Note Waldo Tan MD - 07/11/2023 7:15 AM CDT [facility] GI ENDOSCOPY Patient Name: Ming Taylor Procedure Date: 07/11/2023 7:15 AM Date of : 1955 Admit Type: Outpatient Age: 68 Gender: Male Attending MD: Waldo Tan M.D. Room: [facility] ENDOSCOPY ROOM 06 Note Status: Finalized Procedure: Colonoscopy Indications: Follow-up of chronic ulcerative pancolitis Referring MD: Reno Sutton Providers: Waldo Tan M.D. Medicines: Monitored Anesthesia [...] The scope was passed under direct vision.The [id number] colonoscope was introduced through theanus and advanced [...] On: 07/11/2023 7:15 AM Recognized by the [employer] for promoting quality in endoscopy us Waldo Tan MD ENDOSCOPY PROCEDURES Final Resul t * CT Abd/Pelvis with contrast (02/17/2021 1:31 PM ACID SUPERVISOR) Anatomical Region Laterality Modality Body N/A Computed Tomogra phy 02/17/2021 2:16 PM ACID SUPERVISOR Impressions 02/17/2021 2:16 PM ACID SUPERVISOR 1. Apparent filling defect in the right [...] M.D. , PHD Narrative 02/17/2021 2:16 PM ACID SUPERVISOR EXAMINATION: Computed tomography of the abdomen and [...] No suspicious osseous lesion. Procedure Note John Sanots MD PhD - 02/17/2021 EXAMINATION: Computed tomography [...] 02/17/2021 at 2:10 PM Electronically signed by: Jonh Santos M.D. , PHD Bashir Gillis MD IMG CT PROCEDURES Final Result from Last 3 Months or Most Recently Relevant to Health Maintenance Insurance [employer] MED[employer]ARE FUNDS [facility] [employer] AND [employer] MEDICARE [facility] MEDICARE FUNDS Advance Directives For more information, please contact: [phone] * Full Code (Latest Code Status on File) Date Activated Date Inactivated Comments 05/09/2021 10:54 AM 05/09/2021 5:38 PM * Full Code Date Activated Date Inactivated Comments 05/09/2021 10:54 AM 05/09/2021 10:54 AM * Full Code Date Activated Date Inactivated Comments 04/21/2019 12:40 PM 04/21/2019 7:11 PM * Full Code Date Activated Date Inactivated Comments 09/17/2017 9:45 AM 09/17/2017 1:58 PM Care Teams Skilled Nursing Facilities Professional Relationship Specialty Start Date End Date Neftaly Hawthorne MD PCP - General Internal Medicine 10/10/17 Ariel Ford Jr., MD Medical Oncologist/Digital Experience Manager Medical Oncology 01/23/19 Sebastián Muñiz II, MD Referring Physician Otolaryngology 04/01/19 Narciso Hauser MD [address] [place] [address] Consulting Physician Pulmonary Disease 07/30/19
--- OUTSIDE RECORDS SUMMARY | 2025-02-03 00:24 | XMS_ITS | Encounter Summary ---
Author Organization [facility] Address [address] [facility] [place] [address] Care Team Providers Care Aircraft Worker Name Role Phone Neftaly Jamison MD Primary Care Provider [phone] Encounter Details Date Type Department Care Team (Late st Contact Info) Description 01/22/2023 Lab Requisition [facility] - DermPath Lab [address] [facility] [place] [id number] Sadi Irizarry MD [address] [facility] [place] [address] Social History Tobacco Use Types Packs/Day Years Used Date Smoking Tobacco: Former Alcohol Use Standard Drinks/Week Comments No 0 (1 standard drink = 0.6 oz pur e alcohol) Sex and Gender Information Value Date Recorded Sex Assigned at Not on file Legal Sex Male 6:12 PM WEB MOBILE DESIGNER Gender Identity Not on file Sexual Orientation Not on file documented as of this encounter Plan of Treatment Not on file documented as of this encounter Procedures Procedure Name Priority Date/Time Associated Diagnosis Comments DERMATOPATHOLOGY Routine 01/22/2023 12:0 0 AM WEB MOBILE DESIGNER documented in this encounter Results * DERMATOPATHOLOGY (01/22/2023 12:00 AM WEB MOBILE DESIGNER) Case Report Dermatopathology Report Case: [id number] Authorizing Provider: Sadi Irizarry MD Collected: 01/22/2023 12:00 AM Ordering Location: [facility] DermPath Lab Received: 01/22/2023 02:41 PM Pathologist: Marisela Cardona MD Specimen: Skin, right forearm 1:45 PM [facility] DERMATOPATHOLOGY LABORATORY Final Diagnosis Specimen A. SKIN, right forearm: BENIGN VERRUCOUS KERATOSIS (L82.1) (see microscopic description) 1:45 PM [facility] DERMATOPATHOLOGY LABORATORY at 1345 WEB MOBILE DESIGNER Clinical History SCCA vs Prurigo Path# [id number] 1:45 PM [facility] DERMATOPATHOLOGY LABORATORY Gross Description Specimen A: Received is one formalin filled container labeled with the patient's name and designated right forearm. The specimen consists of a shave biopsy measuring 10x9x2 mm. Jar 0. 1:45 PM [facility] DERMATOPATHOLOGY LABORATORY Microscopic Description Specimen A. SKIN, right forearm: Sections show hyperkeratosis, papillomatosis, hypergranulosis, and acanthosis. These histological findings can be seen in a verruca vulgaris or a seborrheic keratosis. Prurigo nodularis was also considered. 1:45 PM [facility] DERMATOPATHOLOGY LABORATORY Disclaimer An external and [...] purposes. Billing Codes Specimen Charges Stain Charges 17860 1 1:45 PM [facility] DERMATOPATHOLOGY LABORATORY Embedded Images 1:45 PM [facility] DERMATOPATHOLOGY LABORATORY Pathology/Cytolog y TISSUE SPECIMEN FROM SKIN / Unknown 01/22/2023 01/22/2023 2:41 PM WEB MOBILE DESIGNER us Sadi Irizarry MD LAB - PATHOLOGY/CYTOLOGY ORDER JOSSUE Final Result DERMATOPATHOLOGY LABORATORY [facility] - Department of Dermatology [address] [phone] documented in this encounter Visit Diagnoses Not on filedocumented in this encounter Care Teams Aircraft Worker Relationship Specialty Start Date End Date Neft[place] [address] PCP - General 07/20/14 documented as of this encounter
--- OUTSIDE RECORDS SUMMARY | 2025-02-03 00:25 | XMS_ITS | Encounter Summary ---
Author Organization [facility] Facility Care Team Providers Care Nca Certified Concierge Name Role Phone Bessie Jamison MD Primary Care Provider [phone] Bessie Jamison MD Primary Care Provider [phone] Bessie Hawthorne MD Primary Care Provider [phone] Logan Contreras MD, Ariel Unavailable + [phone] Antonino FUENTES MD, Sebastián [place] Unavailable [phone] Narcios Hauser MD Unavailable [phone] Encounter Details Date Type Department Care Team (Latest Contact Info) Description 12/30/2013 Orders Only [facility] ProviderMinh MD [address] [place] [address] Social History Tobacco Use Types Packs/Day Years Used Date Smoking Tobacco: Never Assessed Sex and Gender Information Value Date Recorded Sex Assigned at Not on file Legal Sex Male 2:36 AM COIL ASSEMBLER Gender Identity Male 09/16/2019 11:58 AM CDT Sexual Orientation Straight 09/16/2019 11 :58 AM CDT documented as of this encounter Functional Status documented as of this encounter Plan of Treatment Not on file documented as of this encounter Procedures Procedure Name Priority Date/Time Associated Diagnosis Comments SCAN - LABS 01/24/2016 12:00 AM COIL ASSEMBLER documented in this encounter Results * SCAN - LABS (01/24/2016 12:00 AM COIL ASSEMBLER) Narrative 01/24/2016 12:00 AM COIL ASSEMBLER Ordered by an unspecified provider. us Historical Provider Final Res ult documented in this encounter Visit Diagnoses Not on filedocumented in this encounter Care Teams Nca Certified Concierge Relationship Specialty Start Date End Date Bessie Jamison MD PCP - General 07/08/16 09/16/17 Bessie Jamison MD PCP - General 09/17/17 09/27/17 Bessie Hawthorne MD PCP - General Internal Medicine 10/10/17 Ariel Ford Jr., MD Medical Oncologist/[employer] Medical Oncology 01/23/19 Sebastián Muñiz II, MD Referring Physician Otolaryngology 04/01/19 Narciso Hauser MD [address] [place] [address] Consulting Physician Pulmonary Disease 07/30/19 documented as of this encounter
[2025-02-03] MEDS: LACTATED RINGERS 1,000 ML 30 ML IV CONT ×2 (07:00→09:15)
--- NOTE | 2025-02-03 07:15 | WPDANESEPPF ---
Anes - Initial Pre Proc Eval Procedure: Operation Date: 02/03/25 07:30 Proposed Procedures p Right L5-S1 Far Lateral Foraminotomy for Synovial Cyst - Mahad Joseph MD Date/Time: 02/03/25 07:15 Surgeon: Mahad Joseph MD Pre Op Diagnosis: foraminal stenosis, synovial cyst Patient Data Age: 69 Gender: M Height: 1.75 m Weight: 105.7 kg Last Vital Signs Temp 36.7 C 01/15/25 10:51 Pulse 61 01/15/25 10:51 Resp 18 01/15/25 10:51 BP 145/85 H 01/15/25 10:51 Pulse Ox 100 01/15/25 10:51 O2 Del Method Room Air 01/15/25 10:51 Allergies Allergy/AdvReac Type Severity Reaction Status Date / Time codeine Allergy Mild Headache Verified 01/15/25 10:10 Home Medications ?Medication ?Instructions ?Recorded ?Confirmed ?Type buspirone 15 mg tablet 30 mg PO BID 12/30/24 01/15/25 History finasteride 5 mg tablet 5 mg PO DAILY 12/30/24 01/15/25 History fluoxetine 40 mg capsule 40 mg PO DAILY 12/30/24 01/15/25 History mesalamine 1.2 gram tablet,delayed 4.8 g PO DAILY 12/30/24 01/15/25 History release methocarbamol 500 mg tablet 500 mg PO Q8H 12/30/24 01/15/25 History olmesartan 40 mg tablet 40 mg PO DAILY 12/30/24 01/15/25 History omeprazole 20 mg capsule,delayed 20 mg PO BID 12/30/24 01/15/25 History release ropinirole 3 mg tablet 3 mg PO HS 12/30/24 01/15/25 History tamsulosin 0.4 mg capsule 0.4 mg PO HS 12/30/24 01/15/25 History potassium chloride 10 mEq 10 meq PO BID 01/15/25 01/15/25 History tablet,extended release (Klor-Con) Patient hx anesthesia problems: none Family hx anesthesia problems: none Results Review: All pre-operative results and documents have been reviewed as part of the pre-operative evaluation. [facility] Past Medical History Medical History (Updated 02/03/25 @ 07:15 by Stone Duff MD) Obesity DIANNA on CPAP HTN (hypertension) Crohn's colitis Surgical History Surgical History Cholecystectomy planned Hx of appendectomy Rotator cuff arthropathy of both shoulders Family History Family History Father Cancer Hypertension Diabetes mellitus Heart disease Sibling Diabetes mellitus Cancer Mother Cancer Social History Social History Smoking packs per day: 2 Smoking cigarettes per day: 40.0 Years smoked: 18 Smoking pack-years: 36.00 Smoking status: Former smoker Tobacco type: cigarettes Smoking end date: 03/12/91 Alcohol intake: unknown Substance use: current Substance use type: marijuana Last use: 01/14/25 Current Housing: Decline to Answer Concerned About Future Housing: Decline to Answer Difficulty Paying Gas/Electric Bills: Decline to Answer Difficulty Paying for Meds: Decline to Answer Currently Unemployed: Decline to Answer Difficulty w/ Childcare or Family Care: Decline to Answer Living arrangements: with family Spiritual care concerns: No Anes - Eval Final PreProcedure Day of Procedure 02/03/25 07:15 Patient weight: obese Heart: regular rate and rhythm Lungs: clear to auscultation Airway: Mallampati scale class II Neurological: alert and oriented Last oral intake: >/= 8 hours ASA classification: III Emergent: no Anesthetic plan: proceed Anesthesia type and monitoring: general ETT and standard monitoring Results Review: All pre-operative results and documents have been reviewed as part of the pre-operative evaluation. Informed Consent: The patient's anesthetic plan and its attendant risks and benefits were discussed with the patient/family/POA. Questions were solicited and answers provided to the satisfaction of the patient/family/POA.
--- NOTE | 2025-02-03 07:44 | PM.IMHP ---
H&P: HPI History of Present Illness Date/Time: 02/03/25 07:44 Chief Complaint: Back and leg pain Narrative: Sai is a 61-year-old gentleman with a long-time history of pain in his back and extending into his right lower extremity at times all the way down to the dorsum of the foot. This been going on for years any in fact retired in 2019 because of this pain in his back and right lower extremity. He never affects the left lower extremity. It is not associated with specific muscle group weakness but he does notice generalized weakness of the right lower extremity at times. He does not have bowel or bladder difficulty. He does not have specific dermatomal numbness. His pain is associated with activity, including some standing and walking and is better with rest and sitting but it can occur in any sustained posture or with any sustained activity. It is severe and limiting for him on a daily basis. 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 His pain began without inciting event. Review of Systems Review of Systems: All systems reviewed & are unremarkable except as noted in HPI and below Denies chills, Denies fever, Denies weight gain and Denies weight loss Eyes Denies change in vision and Denies diplopia ENT Denies disequilibrium Card Denies chest pain and Denies dyspnea Resp Denies cough and Denies dyspnea GI Denies abdominal pain, Denies change in bowel habits, Denies fecal incontinence and Denies vomiting Denies hematuria, Denies oliguria, Denies difficulty urinating, Denies dysuria, Denies urinary frequency, Denies urinary hesitancy, Denies urinary incontinence and Denies urinary urgency Musc Reports as per HPI Skin/ Breast Reports system reviewed and no additional complaints, except as documented Neuro Reports as per HPI Psych Reports no additional complaints, Denies depression and Denies hopelessness Endo Reports no additional complaints and Denies polyuria Drew/ Lymph Reports no additional complaints Aller/ Immun Reports no additional complaints PMF Past Medical History Medical History (Updated 02/03/25 @ 07:15 by Stone Duff MD) Obesity DIANNA on CPAP HTN (hypertension) Crohn's colitis Surgical History Surgical History Cholecystectomy planned Hx of appendectomy Rotator cuff arthropathy of both shoulders Family History Family History Father Cancer Hypertension Diabetes mellitus Heart disease Sibling Diabetes mellitus Cancer Mother Cancer Social History Social History Smoking packs per day: 2 Smoking cigarettes per day: 40.0 Years smoked: 18 Smoking pack-years: 36.00 Smoking status: Former smoker Tobacco type: cigarettes Smoking end date: 03/12/91 Alcohol intake: unknown Substance use: current Substance use type: marijuana Last use: 01/14/25 Current Housing: Decline to Answer Concerned About Future Housing: Decline to Answer Difficulty Paying Gas/Electric Bills: Decline to Answer Difficulty Paying for Meds: Decline to Answer Currently Unemployed: Decline to Answer Difficulty w/ Childcare or Family Care: Decline to Answer Living arrangements: with family Spiritual care concerns: No Meds Home Medications and Allergies Home Medications ?Medication ?Instructions ?Recorded ?Confirmed ?Type buspirone 15 mg tablet 30 mg PO BID 12/30/24 02/03/25 History finasteride 5 mg tablet 5 mg PO DAILY 12/30/24 01/15/25 History fluoxetine 40 mg capsule 40 mg PO DAILY 12/30/24 02/03/25 History mesalamine 1.2 gram tablet,delayed 4.8 g PO DAILY 12/30/24 01/15/25 History release methocarbamol 500 mg tablet 500 mg PO Q8H 12/30/24 01/15/25 History olmesartan 40 mg tablet 40 mg PO DAILY 12/30/24 02/03/25 History omeprazole 20 mg capsule,delayed 20 mg PO BID 12/30/24 01/15/25 History release ropinirole 3 mg tablet 3 mg PO HS 12/30/24 01/15/25 History tamsulosin 0.4 mg capsule 0.4 mg PO HS 12/30/24 01/15/25 History potassium chloride 10 mEq 10 meq PO BID 01/15/25 01/15/25 History tablet,extended release (Klor-Con) Allergies Allergy/AdvReac Type Severity Reaction Status Date / Time codeine Allergy Mild Headache Verified 02/03/25 07:33 Vital Signs Vital Signs - 24 hr 02/03/25 07:00 Temperature 97.7 F Pulse Rate 63 Respiratory Rate 16 Blood Pressure 130/75 Pulse Oximetry 97 Oxygen Delivery Room Air Exam Narrative: General: cooperative, no acute distress, well developed, alert and awake Orientation/Consciousness: oriented to person, oriented to place and oriented to time Constitutional Limitations: no limitations Other: The patient is a normally developed, normal appearing male sitting on the examination table in no acute distress. He is awake, alert, and oriented x3 with good fund of knowledge, recall of events, and fluent speech. HENNH Head: normocephalic and atraumatic Ears: external ears normal Face/Nose/Sinus: Normal external nose present Eyes Eyelids: eyelids normal Pupils: Yes Pupils normal by confrontation EOM: EOMs intact bilaterally Neck General: Yes no meningeal signs, Yes supple and Yes no JVD Resp Effort/Inspection: normal respiratory effort and able to speak in complete sentences Cardio Rate: Yes regular rate GI Inspection: No abdominal distension Musc Other: Examination of the back reveals no tenderness. Range of motion of the back is slightly limited in forward flexion and extension. There is pain in extension. Straight leg raise is negative bilaterally. Rainer?s test is negative bilaterally. Skin General: normal color Neuro General: Yes oriented to person, Yes oriented to place, Yes oriented to time, Yes normal cognition and Yes no meningeal signs Cranial Nerves: Yes CN's II-XII intact bilaterally Other: Motor: Strength is normal, 5/5, throughout all muscle groups of the bilateral lower extremities to direct confrontation. Sensory: Sensation is intact to light touch throughout the lower extremities bilaterally. Reflexes: Deep tendon reflexes are difficult to elicit at the knees or ankles bilaterally. There is no clonus. Gait: Gait, station, and transfers are independent and steady for short periods of time and over short distances. Psych Appearance: grossly normal Mental status: Yes mental status grossly normal Mood: congruent mood Affect: Yes normal affect Speech/Movement: Normal speech and movement present Attitude: Yes cooperative Thought Content: Normal thought content present Review of studies: MRI of the lumbar spine was personally reviewed by me and demonstrates significant spondylosis at L3-4, L4-5 and L5-S1. There is gapping of the facet and fluid within the facets at L3-4 L4-5. There is severe foraminal stenosis on the right at L5-S1 compressing the exiting L5 nerve root. This is secondary to ligamentous and facet hypertrophy as well as synovial cyst in the foramen. Assessment and Plan Assessment and plan (1) Lumbar spondylosis: Code(s): M47.816 - Spondylosis without myelopathy or radiculopathy, lumbar region Status: Acute (2) Foraminal stenosis of lumbosacral region: Code(s): M48.07 - Spinal stenosis, lumbosacral region Status: Acute Plan Sai is a 61-year-old gentleman with back and leg pain related to the spondylosis in the lumbar spine as well as the severe foraminal stenosis on the right at L5-S1. I would recommend simple decompression only by way of right L5-S1 far lateral foraminotomy, microdiskectomy if necessary and removed the synovial cyst. A fusion surgery is necessary he will need to prove that by feeling a simple decompressive surgery which I do not believe that he will fail. I described to him that operation, its risks, potential benefits, the operative and postoperative course in detail and answered all questions personally. We discussed risks including but not limited to permanent neurologic deficit secondary to nerve root injury, need for reoperation secondary to infection, bleeding, CSF leak, adjacent level disease, recurrent or residual pathology or instability, failure of the procedure to relieve his pain or symptoms, persistent pain, medical complications related anesthesia or surgery, etc.. He indicates understanding and elects to proceed with that operation.
--- NOTE | 2025-02-03 07:48 | WPDHPUPDATE1 ---
History and Physical Update Update Date/Time: 02/03/25 07:48 History and Physical has been reviewed, including an updated exam of the patient. There are NO changes in the patient's condition. Risks, benefits, and alternatives have been discussed and questions answered. Patient agrees to proceed with procedure.
[2025-02-03] MEDS: ceFAZolin 2 GM in SODIUM CHLORIDE 0.9% IV 50 ML 100 ML IVPB (07:49)
[2025-02-03] MEDS: LIDO 1%/EPINEPHRINE 1:100,000 50 ML VIAL (08:18)
--- NOTE | 2025-02-03 10:05 | W.PM.PROC2 ---
Procedure Note - Detailed Date of Procedure 02/03/25 Pre-op Diagnosis foraminal stenosis, synovial cyst Post-op Diagnosis Same Procedure Performed Right L5-S1 far lateral foraminotomy for synovial cyst Surgeon Mahad Joseph MD Anesthesia General Description of Procedure Patient was brought to the operating room in the supine position, was sedated, intubated placed under general anesthesia in routine fashion. He was then turned into the prone position on a Eric frame. The of operation on his back was examined, marked for incision, prepped and draped in routine sterile fashion. Incision was marked over the L5 and S1 spinous processes in the midline. This area was injected 0.5% lidocaine with [id number] epinephrine. Intravenous antibiotics given prior to incision. Incision was made with a 10 blade scalpel down to the lumbodorsal fascia. A subperiosteal dissection of the muscle soft tissue away from spinous process and lamina was performed with a subperiosteal elevator and Bovie cautery. A verifying x-rays obtained to verify the level of operation. A Midas Carmelo drill was used to resect the lateral pars and facet to the soft contents of the foramen were encountered. A curved curette was used under microscopy the lift the yellow ligament. There was found to be a synovial cyst superiorly. This was carefully dissected free of the foramen and lifted. The nerve root was noted inferior and deep to the cyst. The cyst was carefully clipped out using a 2 Kerrison punch it was then removed from the wound. The nerve root was inspected. It was moved superiorly but no significant disc herniation was noted beneath the nerve. Limited bony foraminotomy was performed with Kerrison punches and curved curettes. All this was performed until a dental instrument could be placed above and below the nerve to confirm lack of compression. The wound was then copiously irrigated with bacitracin irrigation all bleeding stopped bipolar Bovie cautery and Gelfoam thrombin powder. Was then closed in layered fashion with 2-0 Vicryl interrupted sutures in the lumbodorsal fascia and Janina's layer. 3-0 Vicryl buried interrupted sutures were placed in the dermis the skin was closed with a running 4-0 Monocryl subcuticular stitch and dressed with Dermabond. The patient was allowed to wake up in the operating room and was taken to the recovery room in stable condition. There were no immediate complications this operation. All counts reported correct the case. Blood loss was 25 cc. The patient was neurologically at his baseline postoperatively. CPT codes: 75908, 56925 Estimated Blood Loss 25 Complications None Condition Stable Disposition PACU [facility] Billing Surgery - Charge Forward: Surgery Billing
== END 2025-02-03 11:00 | disposition home or self-care (01) ==
PROVIDERS: PCP Internal Medicine; Visit Provider Neurological Surgery
PROC: (CPT 63005; principal; 2025-02-03 07:30)
DX: M48.07 Spinal stenosis, lumbosacral region (principal); M47.816 Spondylosis without myelopathy or radiculopathy, lumbar region; M71.38 Other bursal cyst, other site
CPT/HCPCS: 63056; 99199; J0690; J2003; J2004; J2250; J2405; J2704; J3010; J7120